=== PATIENT | male | born 1945 | race Caucasian/White ===

== ENCOUNTER 2017-01-26 15:20 | Inpatient (IN) ==
--- NOTE | 2017-01-26 15:35 | Emergency Department Note ---
START Narrative - START START: I examined this patient and my medical decision-making was reviewed with the PRIMER CHARGING TOOL SETTER/PA/Advanced Practice Nurse/Resident Physician. I agree with the documented findings, disposition and treatment plan as described except to the extent set forth below. will check ROBERTO. vasc surg consult
--- NOTE | 2017-01-26 15:42 | Emergency Department Note ---
Disposition Clinical Impression: Right leg pain Leg graft occlusion Qualifiers: Encounter type: initial encounter Qualified Code(s): T82.898A - Other specified complication of vascular prosthetic devices, implants and grafts, initial encounter Disposition: Admitted As Inpatient Condition: Good [facility]errals: [facility] [Non-Partnered Physician] - Forms: ED Satisfaction Letter General Adult HPI - General Chief complaint: ED Extremity Problem,Nontraumatic Stated complaint: right leg pain Time Seen by Provider: 01/26/17 15:24 Source: patient Mode of arrival: EMS Limitations: no limitations Nursing Notes Reviewed: Yes Vital Signs Reviewed: Yes - History of Present Illness HPI Narrative: 71-year-old male who reports last night sudden onset of pain from his mid calf all the way to his foot on the right. He also noted that his foot turned white and his toes were cold. He has a history of a femoropopliteal bypass on the right leg in the year 1999. In November he had a stent placed inside of the graft due to an aneurysm. This surgery was done down in [place] as he was standing down there for the winter. He states that the pain has been improving but his foot is still different color especially with any exertion and his toes are so cold and he has numbness in his foot. He denies him having any other symptoms such as chest pain, abdominal pain, palpitations. He does take an aspirin but is not on Plavix, Proventil, anticoagulants. Other medical problems include diabetes, hypertension, coronary arterial disease, peripheral vascular disease, CKD, hyperlipidemia. He is a current smoker Radiation: non-radiation Pain Severity: mild Pain Scale: 0 Consistency: constant Improves with: rest Worsens with: other (Ambulation) Associated symptoms: Reports: denies other symptoms Treatments Prior to Arrival: none - Related Data Allergies Allergy/AdvReac Type Severity Reaction Status Date / Time etodolac AdvReac See Verified 06/24/15 13:05 Comments IV DYE Allergy Rash Uncoded 06/24/15 13:05 All systems ED: reviewed and negative except as stated. Constitutional: Denies: fever Eyes: Denies: vision change ENT ED: Denies: throat pain Cardiovascular: Denies: chest pain Respiratory: Denies: cough Gastrointestinal: Denies: abdominal pain, nausea, vomiting Genitourinary: Denies: dysuria Musculoskeletal: Denies: back pain Integumentary: Denies: rash Neurological: Denies: headache Endocrine: Denies: fatigue Past Medical History - Past Medical History Medical history: Reports: diabetes, hyperlipidemia, hypertension, myocardial infarction, peripheral artery disease, renal disease - Social History Smoking Status: Former smoker Smokeless Tobacco Status: No Alcohol use: Reports: none Drug use: Reports: none Physical Exam - General Limitations: no limitations General appearance: alert, in no apparent distress - Head Head exam: atraumatic - Eye Eye exam: Present: normal appearance, PERRL - ENT ENT exam: normal exam, normal oropharynx - Neck Neck exam: Present: normal inspection - Chest Chest inspection: Present: normal inspection - Respiratory Respiratory exam: Present: normal lung sounds bilaterally. Absent: respiratory distress - Cardiovascular Cardiovascular exam: Present: regular rate, normal rhythm - Abdominal Exam Abdominal exam: Present: soft, Non-Tender - Extremities Exam Extremities exam: Present: other (Right lower extremity is cool to the touch compared to the left. Pulses are not palpable but they are difficult to palpate in either extremity likely due to his severe peripheral vascular disease. The right lower extremity is more pale compared to the left. He does have decreased sensation on the right compared to the left) - Back Exam Back exam: Present: normal inspection - Neurological Exam Neurological exam: Present: alert, oriented X3 - Skin Skin exam: Present: warm, dry Course Course Narrative: Due to concern for a acute thrombotic event we will obtain an ROBERTO and also some basic labs and coags in case we need to anticoagulate. Once we have the results of the ROBERTO if needed we will consult vascular surgery. There is no signs of cellulitis present in the lower extremities. - Reevaluation(s) Reevaluation #1: ABIs concerning for arterial occlusion. ROBERTO of 0.[address] Ordonez evaluated the patient here in the ER and would like him admitted on a heparin drip. He plans for CT scan after renal optimization. Accepted by Dr. Petty Vital Signs Temperature 98.1 F 01/26/17 15:21 Pulse Rate 78 01/26/17 15:21 Respiratory Rate 18 01/26/17 15:21 Blood Pressure 123/75 01/26/17 15:21 O2 Sat by Pulse Oximetry 98 01/26/17 15:21 Temperature 98.1 F 01/26/17 15:21 Pulse Rate 74 01/26/17 18:40 Respiratory Rate 18 01/26/17 18:40 Blood Pressure 129/82 01/26/17 18:40 O2 Sat by Pulse Oximetry 98 01/26/17 18:40 Medical Decision Making - Lab Data Lab results reviewed: Yes I reviewed the patient's lab results. Result diagrams: 01/26/17 16:10 01/26/17 16:10 Lab Results 01/26/17 01/26/17 01/26/17 Range/Units 16:10 16:10 16:10 WBC 6.8 (4.3-11.1) K/mcL RBC 3.73 L (4.19-5.50) M/mcL Hgb 10.5 L (12.9-16.9) g/dL Hct 32.2 L (37.5-50.1) % MCV 86.3 (83.0-100.0) fL MCH 28.2 (28.0-33.3) pg MCHC 32.6 (31.6-35.5) g/dL RDW 14.6 H (11.5-14.5) % Plt Count 138 L (140-400) K/mcL MPV 11.3 (9.4-12.4) fL Immature Gran % 1.0 (0-4) % Seg Neutrophils % 77.4 % Lymphocytes % 13.0 % Monocytes % 6.7 % Eosinophils % 1.5 % Basophils % 0.4 % Neutrophils # 5.3 (1.6-8.9) K/mcL Lymphocytes # 0.9 (0.6-4.6) K/mcL Monocytes # 0.5 (0.0-1.3) K/mcL Eosinophils # 0.1 (0.0-0.6) K/mcL Basophils # 0.0 (0.0-0.2) K/mcL PT 11.2 (9.4-12.1) Seconds INR 1.0 APTT 29.1 (26.0-36.0) Seconds Sodium 137 (136-145) mEq/L Potassium 4.0 (3.5-4.5) mEq/L Chloride 105 (98-109) mEq/L Carbon Dioxide 21 (19-29) mEq/L BUN 37 H (8-26) mg/dL Creatinine 1.94 H (0.72-1.25) mg/dL Est GFR ( Amer) 42 L (> 60) Est GFR (Non-Af Amer) 34 L (> 60) BUN/Creatinine Ratio 19 (6-26) Glucose 175 H (70-99) mg/dL Calculated Osmolality 297 (280-300) Calcium 8.6 (8.6-10.8) mg/dL Creatine Kinase 40 (30-200) Units/L - Radiology Data Radiology results reviewed: Yes I reviewed the patient's radiology results.
[2017-01-26 16:17] LABS: Basophils % 0.4 %; Eosinophils # 0.1 K/mcL (0.0-0.6); Eosinophils % 1.5 %; Hematocrit 32.2 % (37.5-50.1); Hemoglobin 10.5 g/dL (12.9-16.9); Lymphocytes # 0.9 K/mcL (0.6-4.6); Mean Corpuscular HGB Conc 32.6 g/dL (31.6-35.5); Mean Corpuscular Hemoglobin 28.2 pg (28.0-33.3); Mean Corpuscular Volume 86.3 fL (83.0-100.0); Mean Platelet Volume 11.3 fL (9.4-12.4); Monocytes # 0.5 K/mcL (0.0-1.3); Monocytes % 6.7 %; Neutrophils # 5.3 K/mcL (1.6-8.9); Platelet Count 138 K/mcL (140-400); Red Blood Count 3.73 M/mcL (4.19-5.50); Red Cell Distribution Width 14.6 % (11.5-14.5); Segmented Neutrophils % 77.4 %
[2017-01-26 16:22] LABS: Prothrombin Time 11.2 Seconds (9.4-12.1)
[2017-01-26 16:25] LABS: Activated Partial Thrombo Time 29.1 Seconds (26.0-36.0)
[2017-01-26 16:29] LABS: Calcium 8.6 mg/dL (8.6-10.8)
--- NOTE | 2017-01-26 17:28 | Arterial Study Report ---
LE Arterial Physiologic Study Patient Name:Elver Acevedo Order Number:[id number] Procedure Date:01/26/2017 Date:1945ge:71 yrs Gender:Male Lt BP:130 / mmHg Rt.BP:117 / mmHgHeart Rate: Location:[facility] ED Room #: Longitudinal Float Operator:Marianela Diamond RVT, JERRI Referring MD:Eduardo Marroquin DO reel film inspector:[facility] Tasha MD:Isauro Ordonez MD Primary Indications:right leg cold pain Risk Factors Yes/No Hypertension Yes Diabetes Yes Hypercholesterolemia Yes Smoking Current No Anticoagulants Yes Previous Vascular Surgery Yes Impressions: The right ROBERTO and waveforms are consistent with severe disease. Right ROBERTO 0.25. The left ROBERTO and waveforms are consistent with mild disease. Left ROBERTO 0.91 Recommendations: Risk factor reduction. Further evaluation is recommended. Test completed on 01/26/2017 at 5:07:47 pm. Critical findings reported to Eduardo Marroquin in person at 5:07:58 pm on 01/26/2017 by Marianela Diamond RVT, JERRI. Findings LE Arterial Physiologic Exam: Segmental Pressures: Right: The right posterior tibial pressure is 33 mmHg with an index of 0.25. The right dorsalis pedis pressure is 15 mmHg with an index of 0.12. Left: The left posterior tibial pressure is 118 mmHg with an index of 0.91. The left dorsalis pedis pressure is 101 mmHg with an index of 0.78. PVR: Right: The PVR waveforms are absent in the right ankle. Left: The PVR waveforms are mildly diminished in the left ankle. Segmental Pressures Side Location Pressure Index Result Right Posterior Tibial 33 0.25 Right Dorsalis Pedis 15 0.12 Left Posterior Tibial 118 0.91 Left Dorsalis Pedis 101 0.78 Ankle Brachial Index Right Systolic Diastolic ROBERTO Brachial 117 0.25 Dorsalis Pedis 15 0.12 Posterior Tibial 33 0.25 Left Systolic Diastolic ROBERTO Brachial 130 0.91 Dorsalis Pedis 101 0.78 Posterior Tibial 118 0.91 Updated by Isauro Ordonez MD on 01/26/2017 5:20:50 PM with Status of Final electronically signed on 01/26/2017 5:21:24 PM with status of Final
[2017-01-26] MEDS ORDERED: *HR* Heparin 5,000 UNIT/ML VIAL IVP PRN ×2 (18:15)
[2017-01-26] MEDS ORDERED: *HR* Heparin 5,000 UNIT/ML VIAL IVP ONE (18:15)
[2017-01-26] MEDS: Heparin 25,000 UNIT/500 ML D5W 25,000 UNIT/500 ML MLS IVC SCH (18:19)
--- NOTE | 2017-01-26 18:19 | Vascular/Endovasc Consult Note ---
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 The patient has an extensive history of vascular procedures including bilateral femoral to popliteal artery bypasses and an aortobifemoral bypass graft. The patient reports a right lower extremity stent that was placed in his graft in November 2016. He now presents with disablnig claudication and rest pain in his right lower extremity. His RABI is consistent with severe disease. His left ROBERTO is mildly abnormal. Occlusion of his right femoral to popliteal artery bypass is suspected. Given his prior surgical procedures, he will need a CT angiogram. Due to his chronic kidney disease, he will need to be hydrated and receive mucomyst. Due to his dye allergy, he will need to be prmedicated prior to his angiogram. His CTA will be performed tomorrow. Further options for revascularization will then be determined. He will be admitted and started on a heparin drip. (2) Diabetes mellitus with peripheral angiopathy without gangrene Current Visit: Yes Status: Chronic (3) Coronary artery disease involving [place] heart without angina pectoris Current Visit: Yes Status: Chronic Qualifiers: Coronary Disease-Associated Artery/Lesion type: [place] artery Qualified Code(s): I25.10 - Atherosclerotic heart disease of [place] coronary artery without angina pectoris (4) Chronic kidney disease, stage 3 Current Visit: Yes Status: Chronic (5) Allergy to intravenous contrast media Current Visit: Yes Status: Chronic (6) Essential hypertension Current Visit: Yes Status: Chronic (7) Mixed hyperlipidemia Current Visit: Yes Status: Chronic (8) Chronic anemia Current Visit: Yes Status: Chronic - History of Present Illness Consult date: 01/26/17 Requesting physician: Eduardo Marroquin Consult reason: Peripheral vascular disease Chief complaint: Right foot coolness, right calf claudication History of present illness: Mr. Acevedo is a 71 year old male with a history of peripheral vascular disease with disabling claudication. He reports bilateral femoral to popliteal artery bypasses around 1999. The patient reports that he later was found to have an aortic and bilateral iliac artery aneurysms. The patient reports he underwent an aortobifemoral bypass graft in 2013. He states that he was noted to have an aneurysm in his right lower extremity graft. He reports that he had a stent placed in his graft in November 2016 while in [place]. He states that he developed pain and coolness in his right foot yesteday. He also reports disabling claudication in the right calf. He presented to the ER due to persistent symptoms. He underwent vascular labs and they were abnormal sovascular surgery was consulted for further evaluation. He denies chest pain or shortness of breath. Past Med Surg Social Fam HX - Past Medical History Medical history: diabetes, hyperlipidemia, hypertension, myocardial infarction, peripheral artery disease, renal disease - Social History Smoking Status: Former smoker Smokeless Tobacco Status: No Alcohol use: none Drug use: none Medications and Allergies Atorvastatin [Lipitor] 40 mg PO HS 01/27/17 [History] Cholecalciferol (D-3) [Vitamin D] 2,000 unit PO DAILY 01/27/17 [History] Clotrimazole 1% CRM [Lotrimin 1%] 1 appl TP BID 01/27/17 [History] Insulin ASPART [Novolog Flexpen] 10 unit SQ TIDWM 01/27/17 [History] Insulin Glargine,Hum.rec.anlog [Lantus Solostar] 65 unit SQ DAILY 01/27/17 [ History] Isosorbide MONOnitrate (24 HR) [Imdur] 60 mg PO DAILY 01/27/17 [History] Lisinopril [Zestril] 40 mg PO DAILY 01/27/17 [History] Metoprolol XL (24 HR) Succ [Toprol XL] 75 mg PO DAILY 01/27/17 [History] RX: BuPROPion SR (12 HR) [Wellbutrin SR] 150 mg PO BID 01/27/17 [History] RX: glipiZIDE [Glipizide] 20 mg PO BID 01/27/17 [History] RX: hydroCHLOROthiazide [Hydrochlorothiazide] 25 mg PO DAILY 01/27/17 [History] Zolpidem [Ambien] 5 mg PO HS 01/27/17 [History] amLODIPine [Norvasc] 5 mg PO DAILY 01/27/17 [History] Allergies etodolac Adverse Reaction (Verified 06/24/15 13:05) See Comments IV DYE Allergy (Uncoded 06/24/15 13:05) Rash All Systems Review: A 10-system review of systems was performed and is negative for pertinent findings except as documented above in the HPI. - Constitutional Constitutional: no chills, no fever(s) - Cardiovascular Cardiovascular: claudication, no chest pain at rest, no chest pain with exertion , no dyspnea at rest, no dyspnea on exertion Exam Vital Signs, Last 4 Hours Temp Pulse Resp BP Pulse Ox 01/26/17 17:09 81 18 111/77 97 01/26/17 15:21 98.1 F 78 18 123/75 98 General: Present: Conversant, No Apparent Distress HEENT: Present: Atraumatic, Normocephaly, Trachea midline, Pupils equal Neck: Absent: JVD, Left Carotid bruit, Right Carotid bruit Cardiac: Present: Reg Rate and Rhythm, Normal S1 and S2, No Murmur Lungs: Present: Normal Breath Sounds, No Wheeze, Rales, Rhonchi Neuro: Present: Alert and responsive, No focal deficits noted, Cranial nerves grossly intact, Motor nerves grossly intact, Sensory nerves grossly intact Abdomen: Present: Soft, Non-tender. Absent: Masses Vascular: Present: Normal capillary refill, Pulse, absent (Right popliteal and tibial pulses), Pulse, normal (bilateral femoral, left popliteal and tibial pulses). Absent: Cyanosis, Edema Skin: Present: No rashes noted on visualized skin. Absent: Wound/ulcer(s) Musculoskeletal: Present: No Chest Wall Tenderness Consult Discharge Plan - Plan [facility]errals: [facility] [Primary Care Provider] -
[2017-01-26] MEDS ORDERED: D5% in Water 1,000 ML IVC PRN (18:53)
[2017-01-26] MEDS ORDERED: *HR* Dextrose 50 % in Water (Syg) 50 ML SYRINGE IVP PRN (18:53)
[2017-01-26] MEDS ORDERED: Dextrose Gel 15 GM PO PRN ×2 (18:53)
[2017-01-26] MEDS ORDERED: Acetaminophen 325 MG TABLET PO PRN (19:16)
[2017-01-26] MEDS ORDERED: Ondansetron 4 MG/2 ML VIAL IVP PRN (19:16)
[2017-01-26] MEDS ORDERED: Naloxone 0.4 MG/ML INJ IVP PRN (19:16)
--- NOTE | 2017-01-26 19:54 | Internal Med History&Physical ---
Date of Encounter: 01/26/17 Time of Encounter: 19:30 Assessment and Plan (1) Ischemia of right lower extremity Current visit: Yes Status: Acute Patient will be admitted to inpatient status. Expected to be in the hospital for at least 2 midnights. Expected discharge disposition is to home. High risk due to risk of worsening gangrene and the need for intravenous heparin drip which needs close monitoring. Vascular surgery on board. Appreciate input and recommendations. CT angiogram tomorrow of the right lower extremity. Continue aspirin and statin. (2) Diabetes mellitus Current visit: Yes Status: Chronic Uses 65 units of Lantus every night. Increase the dose to 70 units due to the patient being on steroids. Sliding scale insulin. Diabetic diet for tonight. Patient is chronic kidney disease stage III and used to see Dr. Griffith at the [place]. Renal function is at baseline according to review of outside records. Qualifiers: Diabetes mellitus type: type 2 Diabetes mellitus complication status: with kidney complications Diabetes mellitus complication detail: with chronic kidney disease Diabetes mellitus terminal operations manager insulin use: with terminal operations manager use Chronic kidney disease stage: stage 3 (moderate) Qualified Code(s): E11.22 - Type 2 diabetes mellitus with diabetic chronic kidney disease; N18.3 - Chronic kidney disease, stage 3 (moderate); Z79.4 - terminal operations manager (current) use of insulin (3) PAD (peripheral artery disease) Current visit: Yes Status: Chronic As above. Vascular surgery on board. Continue aspirin and statin. (4) Essential hypertension Current visit: Yes Status: Chronic Controlled blood pressure. Continue home medications. (5) Coronary artery disease involving [place] heart without angina pectoris Current visit: Yes Status: Chronic Stable. Patient states that he has never required cardiac stents or bypass surgery. He states that he has developed collaterals. Continue aspirin and statin. Qualifiers: Coronary Disease-Associated Artery/Lesion type: [place] artery Qualified Code(s): I25.10 - Atherosclerotic heart disease of [place] coronary artery without angina pectoris (6) Obesity (BMI 35.0-39.9 without comorbidity) Current visit: No Status: Chronic Internal Medicine - H&P: HPI Chief complaint: Right leg pain Admitted From: Emergency Dept Plans for Post Hospital Care: Home History of present illness: Mr. Acevedo is a 71 year old male with a history of peripheral artery disease status post right lower extremity stent placed in November in for [place] who presents to the emergency department due to 03/28 pain in his right calf that started yesterday evening at 5 PM without any radiation that is throbbing in nature. Aggravated with activity and relieved with rest. Not associated with any tingling or numbness or loss of sensation in his right leg and foot. Denies chest pain, palpitations, short of breath, fever or chills, nausea, vomiting or diarrhea, station. Denies any abdominal pain. In the emergency department, he was seen by vascular surgery and underwent ROBERTO. ROBERTO revealed severe disease in the right lower extremity. Vascular surgery felt that he has ischemia of the right lower extra day and that he would require CT angiogram. However, the patient is allergic to IV dye and hence, he is being given steroids by vascular surgery for premedication. He would receive CT abdomen tomorrow. In the interim, he has been recommended by us for surgery to get a heparin drip. Past Med Surg Social Fam HX - Past Medical History Attestation: Yes The following information was validated with the patient. Source: patient, old records reviewed Medical history: coronary artery disease, diabetes, hyperlipidemia, hypertension , myocardial infarction, peripheral artery disease, renal disease Psychiatric history: no psych history - Past Surgical History Surgical History: LE Bypass, LE stent(s), vascular surgery - Social History Smoking Status: Former smoker Smokeless Tobacco Status: No Alcohol use: none Drug use: none Current living situation: Home, With Family Activity Level: Independent ambulation Recent Out of Country Travel Within the Last 8 Weeks: No Exposure or Possible Exposure to Illness During Travel: No - Additional Family History Additional family history: Reviewed; not pertinent Internal Medicine - H&P: Meds Allergies etodolac Adverse Reaction (Verified 06/24/15 13:05) See Comments IV DYE Allergy (Uncoded 06/24/15 13:05) Rash All Systems PM: A 10-system review of systems was performed and is negative for pertinent findings except as documented above in the HPI. Review of systems: 10 systems have been reviewed and are negative except as mentioned in the history of present illness - Constitutional Vitals: Temp Pulse Resp BP Pulse Ox 98.1 F 74 18 129/82 98 01/26/17 15:21 01/26/17 18:40 01/26/17 18:40 01/26/17 18:40 01/26/17 18:40 Exam: Gen.: Lying in bed. No acute distress. Eyes: Pupils equal, round and reactive to light. Extraocular muscles intact. ENT: Moist mucous membranes. No oropharyngeal erythema or discharge. Chest: Clear to auscultation bilaterally. No adventitious sounds present. CVS: First and second heart sounds present. No murmurs, rubs or gallops. Abdomen: Soft, nontender, obese. Bowel sounds present. No hepatosplenomegaly. Skin: No decubitus ulcers appreciated. DECONTAMINATION WORKER: No focal neuro deficits present. Psychiatric: Alert, awake and oriented to time, place and person. Lymphatic system: No lymphadenopathy appreciated Musculoskeletal: Right lower extremity is cold to touch. Absent pulses in the right dorsalis pedis artery. Internal Med - H&P Results - Labs CBC & Chem 7: 01/26/17 16:10 01/26/17 16:10 Labs: Short CBC 01/26/17 Range/Units 16:10 WBC 6.8 (4.3-11.1) K/mcL Hgb 10.5 L (12.9-16.9) g/dL Hct 32.2 L (37.5-50.1) % Plt Count 138 L (140-400) K/mcL Neutrophils # 5.3 (1.6-8.9) K/mcL BMP 01/26/17 16:10 Sodium 137 Potassium 4.0 Chloride 105 Carbon Dioxide 21 BUN 37 H Creatinine 1.94 H Glucose 175 H Calcium 8.6 - Diagnostic Studies Other Images Additional comments: ROBERTO-0.25 in the right side consistent with severe disease. Mild disease in the left lower extremity.
[2017-01-26] MEDS: 0.9 % Sodium Chloride 1,000 ML IVC SCH (21:03)
[2017-01-26] MEDS: predniSONE 20 MG TABLET PO SCH (21:04)
[2017-01-26] MEDS: Insulin DETEMIR 100 UNIT/ML X5UNITS SQ SCH (21:05)
[2017-01-26] MEDS: Insulin LISPRO 300 UNITS/3 ML VIAL SQ SCH (22:04)
[2017-01-27] MEDS: *HR* Acetylcysteine 20% 600 MG/3 ML ORAL SYRINGE PO SCH ×3 (00:01→20:30)
[2017-01-27] MEDS: predniSONE 20 MG TABLET PO SCH ×2 (02:03→07:54)
[2017-01-27 05:40] LABS: Basophils % 0.1 %; Eosinophils % 0.1 %; Hematocrit 32.6 % (37.5-50.1); Hemoglobin 10.4 g/dL (12.9-16.9); Immature Granulocytes % 1.3 % (0-4); Lymphocytes # 0.3 K/mcL (0.6-4.6); Mean Corpuscular HGB Conc 31.9 g/dL (31.6-35.5); Mean Corpuscular Hemoglobin 27.6 pg (28.0-33.3); Mean Corpuscular Volume 86.5 fL (83.0-100.0); Monocytes # 0.1 K/mcL (0.0-1.3); Monocytes % 1.1 %; Platelet Count 122 K/mcL (140-400); Red Blood Count 3.77 M/mcL (4.19-5.50); Red Cell Distribution Width 14.6 % (11.5-14.5); Segmented Neutrophils % 93.4 %
[2017-01-27 05:55] LABS: Albumin 3.3 g/dL (3.5-5.0); Albumin/Globulin Ratio 0.9 (1.1-2.2); Bilirubin,Total 0.4 mg/dL (0.2-1.2); Calcium 8.7 mg/dL (8.6-10.8); Globulin 3.6 g/dL (2.4-3.5); Phosphorous 2.2 mg/dL (2.3-4.7); Potassium 4.3 mEq/L (3.5-4.5); Total Protein 6.9 g/dL (6.0-8.3)
[2017-01-27] MEDS: Insulin LISPRO 300 UNITS/3 ML VIAL SQ SCH ×4 (07:53→20:37)
[2017-01-27] MEDS: 0.9 % Sodium Chloride 1,000 ML IVC SCH ×2 (07:53→20:39)
[2017-01-27] MEDS: Heparin 25,000 UNIT/500 ML D5W 25,000 UNIT/500 ML MLS IVC SCH (07:54)
[2017-01-27] MEDS: Aspirin Enteric Coated 81 MG Tablet PO SCH (07:55)
--- NOTE | 2017-01-27 11:27 | Internal Med Progress Note ---
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 currently on heparin drip and medical therapy for PVD. patient complains of intermittent claudication. add statins. (2) Diabetes mellitus with peripheral angiopathy without gangrene Current Visit: Yes Status: Chronic Assessment and plan: continue with insulin therapy. diabetic diet. monitor fingerstick. if procedures planned and needs to be npo, give half dose of long acting insulin tonight. 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 Qualifiers: Presence of rupture: without rupture Qualified Code(s): I71.4 - Abdominal aortic aneurysm, without rupture (6) Chronic kidney disease, stage 3 Current Visit: Yes Status: Chronic Assessment and plan: avoid nephrotoxic agents. monitor renal function tests. - Subjective Interval history: 1st encounter with the patient. Afebrile, no chest pain, resting comfortable, his significant other was at bedside. - Constitutional Vitals: Temp Pulse Resp BP Pulse Ox 97.8 F 84 18 124/82 99 01/27/17 07:26 01/27/17 08:08 01/27/17 07:26 01/27/17 07:26 01/27/17 07:26 General appearance: Present: cooperative, A&O X 3, pleasant, obese - Head Head exam: Present: atraumatic, normocephalic - Eye Eye exam: Present: PERRL, conjuntiva pink, sclera anicteric Pupils: Present: PERRL - Neck Neck exam general surgery: Present: supple, trachea midline. Absent: lymphadenopathy - Respiratory Respiratory exam: Present: CTAB. Absent: accessory muscle use, rales, rhonchi, wheezes - Cardiovascular Cardiovascular exam: Present: RRR, +S1, +S2. Absent: diastolic murmur, gallop, rubs, systolic murmur - GI/Abdominal GI/Abdominal exam: Present: normal bowel sounds, soft, no peritoneal signs. Absent: distended, tenderness - Extremities Exam Extremities exam: Present: radial pulses palpable and symetrical. Absent: calf tenderness, cyanotic, pedal edema Additional comments: absent pulses in the right lower extremity, decreased temperature in the distal right lower extremity, no cyanosis, no edema, no erythema, femoral pulses present bilaterally. - Neurological Exam Neurological exam: Present: CN II-XII intact, oriented X3, no focal deficits. Absent: pronater drift, facial droop, speech deficit - Skin Skin exam: Present: dry, intact Internal Medicine: Result - Labs CBC & Chem 7: 01/27/17 05:27 01/27/17 05:27 Labs: Short CBC 01/27/17 Range/Units 05:27 WBC 7.5 (4.3-11.1) K/mcL Hgb 10.4 L (12.9-16.9) g/dL Hct 32.6 L (37.5-50.1) % Plt Count 122 L (140-400) K/mcL Neutrophils # 7.0 (1.6-8.9) K/mcL BMP 01/27/17 05:27 Sodium 134 L Potassium 4.3 Chloride 105 Carbon Dioxide 21 BUN 31 H Creatinine 1.68 H Glucose 244 H Calcium 8.7 Liver Function 01/27/17 Range/Units 05:27 Total Bilirubin 0.4 (0.2-1.2) mg/dL AST 12 (5-34) Units/L ALT 10 (0-55) Units/L Alkaline Phosphatase 65 (38-126) Units/L Albumin 3.3 L (3.5-5.0) g/dL - ABG Interpretation ABG results: PT/INR, D-dimer PT 11.2 Seconds (9.4-12.1) 01/26/17 16:10 - Impressions Impressions Aorta w/Runoff CTA 01/27/17 09:00 IMPRESSION: 1. Moderate atherosclerosis with one-vessel runoff to both ankles. No visualized opacification of the dorsalis pedis or plantar arteries, which are incompletely included. 2. Complete occlusions of the bilateral superficial femoral arteries and proximal popliteal arteries status post bilateral common femoral to popliteal bypass grafting. The right bypass graft is completely occluded collateral flow supplying the mid right popliteal artery. The left bypass graft is patent. 3. Changes of aortobi-iliac stent grafting with a stent graft extending from the left iliac limb into left internal iliac artery. No endoleak. 4. Multiple aneurysms involving the infrarenal abdominal aorta; the splenic, bilateral common iliac, right internal iliac, and bilateral popliteal arteries; and the right bypass graft. Recommend follow-up imaging in 1 year per the recommendations below given size of the infrarenal abdominal aortic aneurysm sac. 5. Indeterminate 1.5 cm x 0.9 cm right adrenal lesion, most likely an adenoma. Recommend attention on the above recommended follow-up imaging. RECOMMENDATIONS: Managing Abdominal Aortic Aneurysms 3.5-3.9 cm: 1 year follow up. Reference: Mena et al. The care of patients with an abdominal aortic aneurysm: The Society of Vascular Surgery practice guidelines. Journal of Vascular Surgery. Vol 50, Number 85. Amilcar et al. Managing Incidental Findings on Abdominal and Pelvic CT and MRI, Part 2: White Paper of the ACR Incidental Findings Committee II on Vascular Findings. J Am Prabha Radiol 2013;10:789-794 D/ / Varinder Jauregui MD / Varinder Jauregui MD Interpreting Provider: Varinder Jauregui MD Consult Discharge Plan - Plan Referrals: [facility] [Primary Care Provider] -
--- NOTE | 2017-01-27 13:42 | Vascular/Endovas Progress Note ---
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 His CTA reveals an occluded right femoral to popliteal artery bypass. He also has a right popliteal artery aneurysm below the distal anastamosis. He will require a right femoral to below knee popliteal arteery bypass. The risks, benefits and alternatives were discussed and all questions were answered. He will continue with his heparin drip today. He will also continue with intravenous fluid hydration and mucomyst today due to his chronic kidney disease. Will plan for surgery during the week. (2) Diabetes mellitus with peripheral angiopathy without gangrene Current Visit: Yes Status: Chronic Qualifiers: Diabetes mellitus type: type 2 Diabetes mellitus group home insulin use: unspecified intermission coordinator insulin use status Qualified Code(s): E11.51 - Type 2 diabetes mellitus with diabetic peripheral angiopathy without gangrene (3) Coronary artery disease involving sun'aq heart without angina pectoris Current Visit: Yes Status: Chronic Qualifiers: Coronary Disease-Associated Artery/Lesion type: sun'aq artery Qualified Code(s): I25.10 - Atherosclerotic heart disease of sun'aq coronary artery without angina pectoris (4) Chronic kidney disease, stage 3 Current Visit: Yes Status: Chronic (5) Allergy to intravenous contrast media Current Visit: Yes Status: Chronic (6) Essential hypertension Current Visit: Yes Status: Chronic (7) Mixed hyperlipidemia Current Visit: Yes Status: Chronic (8) Chronic anemia Current Visit: Yes Status: Chronic (9) Popliteal artery aneurysm, bilateral Current Visit: Yes Status: Acute - Subjective Interval history: The patient reports that his foot feels more comfortable since starting his heparin drip. He denies rest pain. He is alert. He denies chest pain or shortness of breath. Vital Signs, Last 4 Hours Temp Pulse Resp BP Pulse Ox 01/27/17 11:39 82 01/27/17 11:28 97.8 F 82 88 139/81 98 - Physical Examination General: Present: Conversant, No Apparent Distress HEENT: Present: Atraumatic, Pupils equal Neck: Absent: JVD Cardiac: Present: Reg Rate and Rhythm, No Murmur Lungs: Present: Normal Breath Sounds, No Wheeze, Rales, Rhonchi Neuro: Present: Alert and responsive, No focal deficits noted, Motor nerves grossly intact, Sensory nerves grossly intact Vascular: Present: Normal capillary refill, Pulse, absent (right popliteal, dorsalis pedis and posterior tibial signals present), Pulse, normal (right femoral and left lower extremity). Absent: Cyanosis, Edema Abdomen: Present: Soft, Non-tender Skin: Present: No rashes noted on visualized skin Results 01/27/17 05:27 01/27/17 05:27 Lab Results, Last 24 hours 01/26/17 01/27/17 01/27/17 23:32 05:27 05:27 WBC 7.5 Hgb 10.4 L Hct 32.6 L Plt Count 122 L APTT 76.4 H D Sodium 134 L Potassium 4.3 Chloride 105 Carbon Dioxide 21 BUN 31 H Creatinine 1.68 H Glucose 244 H Calcium 8.7 Total Bilirubin 0.4 AST 12 ALT 10 Alkaline Phosphatase 65 01/27/17 05:27 WBC Hgb Hct Plt Count APTT 84.6 H Sodium Potassium Chloride Carbon Dioxide BUN Creatinine Glucose Calcium Total Bilirubin AST ALT Alkaline Phosphatase - Imaging / Other Tests Echo: report reviewed CT/CTA: report reviewed, image reviewed Consult Discharge Plan - Plan [facility]errals: [facility] [Primary Care Provider] -
[2017-01-27] MEDS ORDERED: Insulin DETEMIR 100 UNIT/ML X5UNITS SQ ONE (21:00)
[2017-01-27] MEDS ORDERED: Sennosides 8.6 MG TABLET PO PRN (21:47)
[2017-01-28 05:55] LABS: Basophils % 0.1 %; Eosinophils % 0.2 %; Hematocrit 30.4 % (37.5-50.1); Hemoglobin 9.7 g/dL (12.9-16.9); Immature Granulocytes % 1.3 % (0-4); Lymphocytes # 0.8 K/mcL (0.6-4.6); Lymphocytes % 9.2 %; Mean Corpuscular HGB Conc 31.9 g/dL (31.6-35.5); Mean Corpuscular Hemoglobin 27.8 pg (28.0-33.3); Mean Corpuscular Volume 87.1 fL (83.0-100.0); Mean Platelet Volume 10.7 fL (9.4-12.4); Monocytes # 0.5 K/mcL (0.0-1.3); Platelet Count 113 K/mcL (140-400); Red Blood Count 3.49 M/mcL (4.19-5.50); Red Cell Distribution Width 14.6 % (11.5-14.5); Segmented Neutrophils % 83.2 %
[2017-01-28 06:05] LABS: INR 1.1; Prothrombin Time 12.1 Seconds (9.4-12.1)
[2017-01-28 06:08] LABS: Activated Partial Thrombo Time 80.9 Seconds (26.0-36.0); BUN/Creatinine Ratio 18 (6-26); Blood Urea Nitrogen 24 mg/dL (8-26); Calcium 8.2 mg/dL (8.6-10.8); Carbon Dioxide 23 mEq/L (19-29); Chloride 107 mEq/L (98-109); Glucose 194 mg/dL (70-99); Osmolality,Calculated 295 (280-300); Potassium 3.6 mEq/L (3.5-4.5); Sodium 138 mEq/L (136-145); eGFR For African Americans > 60 (> 60); eGFR For Non-African Americans 54 (> 60)
[2017-01-28] MEDS: 0.9 % Sodium Chloride 1,000 ML IVC SCH ×3 (08:10→17:06)
[2017-01-28] MEDS: Heparin 25,000 UNIT/500 ML D5W 25,000 UNIT/500 ML MLS IVC SCH ×2 (08:10→12:22)
[2017-01-28] MEDS: *HR* Acetylcysteine 20% 600 MG/3 ML ORAL SYRINGE PO SCH ×2 (08:17→19:40)
[2017-01-28] MEDS: Aspirin Enteric Coated 81 MG Tablet PO SCH (08:17)
[2017-01-28] MEDS: Insulin LISPRO 300 UNITS/3 ML VIAL SQ SCH ×4 (08:18→21:26)
--- NOTE | 2017-01-28 08:26 | Internal Med Progress Note ---
<Bere Vila - Last Filed: 01/28/17 13:18> Date of Encounter: 01/28/17 Time of Encounter: 08:26 - Assessment and plan (1) Ischemia of right lower extremity Current Visit: Yes Status: Acute Assessment and plan: Patient presented with signs and symptoms of limb ischemia. History of limb ischemia in the past with multiple femoral popliteal bypasses/vascular surgeries. History of peripheral vascular disease. Patient has been assessed for revascularization versus amputation and limb has been deemed viable for endovascular revascularization. CTA demonstrated complete occlusion of the dorsalis pedis/plantar arteries, superficial femoral arteries and proximal popliteal arteries status post femoral -popliteal bypass graft, with right bypass graft completely occluded with collateral flow to mid right popliteal. 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 Left bypass graft is patent. Vascular surgery is following. -Daily exams of extremity -Continue heparin drip -Continue medical therapy for peripheral vascular disease. Continue risk factor modifications: Blood pressure control, statin, antiplatelet therapy, cessation of smoking, low-fat cardiac diet, encourage exercising. -Patient is scheduled for right femoral to below-knee popliteal artery bypass on January 29 at 1330, with Dr. Ordonez. (2) PAD (peripheral artery disease) Current Visit: Yes Status: Chronic Assessment and plan: as above (3) Aortic aneurysm, abdominal Current Visit: Yes Status: Chronic Assessment and plan: Aorta w/Runoff CTA 01/27/17 09:00 4. Multiple aneurysms involving the infrarenal abdominal aorta; the splenic, bilateral common iliac, right internal iliac, and bilateral popliteal arteries; and the right bypass graft. Recommend follow-up imaging in 1 year per the recommendations below given size of the infrarenal abdominal aortic aneurysm sac. RECOMMENDATIONS: Managing Abdominal Aortic Aneurysms 3.5-3.9 cm: [address] noted, follow up as outpatient. Qualifiers: Presence of rupture: without rupture Qualified Code(s): I71.4 - Abdominal aortic aneurysm, without rupture (4) Diabetes mellitus with peripheral angiopathy without gangrene Current Visit: Yes Status: Chronic Assessment and plan: Hold oral hypoglycemics Monitor blood glucose as per protocol. Subcutaneous sliding scale insulin Basal insulin: 35 units Levemir tonight preoperative dosing. Tomorrow night will return to regular basal dosing of 70 units. Diabetic diet. Nothing by mouth after midnight. 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 avoid nephrotoxic agents. monitor renal function tests. BUN: 24, creatinine 1.32, GFR greater than 60 (6) Essential hypertension Current Visit: Yes Status: Chronic Assessment and plan: Currently controlled. Beta nando prior to surgery may be warranted. As per protocol. - Subjective Interval history: Patient was seen and examined. Patient reports no acute events overnight. Patient states that when he walks on his foot it turns white he has pain and then numbness. He has however been ambulating on it despite this. Patient is urinating without difficulty. He is tolerating a diabetic diet well and we will keep him nothing by mouth after midnight for his surgery scheduled with Dr. Ordonez tomorrow. Patient is on heparin drip per protocol. He has not had any falls, bleeding, increased bruising. Vitals stable. - Constitutional Vitals: Temp Pulse Resp BP Pulse Ox 97.7 F 73 17 134/86 96 01/28/17 08:08 01/28/17 08:08 01/28/17 08:08 01/28/17 08:08 01/28/17 08:08 General appearance: Present: cooperative, A&O X 3, pleasant, obese Exam: General: Cooperative, pleasant, no acute distress, alert and oriented 3, answers questions appropriately HEENT: Normocephalic, atraumatic, neck supple, trachea midline, Conjunctiva pink , sclera anicteric, EOMI, PERRL, oral mucosa moist, no orophargeal erythema or exudates Respiratory: No accessory muscle usage, clear to auscultation bilaterally, no wheezes/rhonchi/rales appreciated Cardiovascular: Regular rate and rhythm, S1 and S2 present, no murmurs/rubs/ gallops/clicks appreciated GI/abdominal: Nondistended, nontender, soft, normal bowel sounds, no peritoneal signs Extremities: no calf tenderness on palpation, however pt describes claudication with walking, right lower extremity demonstrates pallor and is cool to touch, no pedal edema appreciated, lower extremity pulses palpable on the left; right absent popliteal, dorsalis pedis, posterior tibial asymmetrical LE pulses. Neurological: Alert and oriented 3, no facial droop, no focal deficits Skin: Dry, intact, diffuse solar damage upper extremities Internal Medicine: Result - Labs CBC & Chem 7: 01/28/17 05:48 01/28/17 05:48 Labs: Short CBC 01/28/17 Range/Units 05:48 WBC 8.4 (4.3-11.1) K/mcL Hgb 9.7 L (12.9-16.9) g/dL Hct 30.4 L (37.5-50.1) % Plt Count 113 L (140-400) K/mcL Neutrophils # 7.0 (1.6-8.9) K/mcL BMP 01/28/17 05:48 Sodium 138 Potassium 3.6 Chloride 107 Carbon Dioxide 23 BUN 24 Creatinine 1.32 H Glucose 194 H Calcium 8.2 L - ABG Interpretation ABG results: PT/INR, D-dimer PT 12.1 Seconds (9.4-12.1) 01/28/17 05:48 - Impressions Impressions Aorta w/Runoff CTA 01/27/17 09:00 IMPRESSION: 1. Moderate atherosclerosis with one-vessel runoff to both ankles. No visualized opacification of the dorsalis pedis or plantar arteries, which are incompletely included. 2. Complete occlusions of the bilateral superficial femoral arteries and proximal popliteal arteries status post bilateral common femoral to popliteal bypass grafting. The right bypass graft is completely occluded collateral flow supplying the mid right popliteal artery. The left bypass graft is patent. 3. Changes of aortobi-iliac stent grafting with a stent graft extending from the left iliac limb into left internal iliac artery. No endoleak. 4. Multiple aneurysms involving the infrarenal abdominal aorta; the splenic, bilateral common iliac, right internal iliac, and bilateral popliteal arteries; and the right bypass graft. Recommend follow-up imaging in 1 year per the recommendations below given size of the infrarenal abdominal aortic aneurysm sac. 5. Indeterminate 1.5 cm x 0.9 cm right adrenal lesion, most likely an adenoma. Recommend attention on the above recommended follow-up imaging. RECOMMENDATIONS: Managing Abdominal Aortic Aneurysms 3.5-3.9 cm: 1 year follow up. Reference: Mena et al. The care of patients with an abdominal aortic aneurysm: The Society of Vascular Surgery practice guidelines. Journal of Vascular Surgery. Vol 50, Number 85. Amilcar et al. Managing Incidental Findings on Abdominal and Pelvic CT and MRI, Part 2: White Paper of the ACR Incidental Findings Committee II on Vascular Findings. 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 status Qualified Code(s): E11.51 - Type 2 diabetes mellitus with diabetic peripheral angiopathy without gangrene (3) Essential hypertension Current Visit: Yes Status: Chronic (4) PAD (peripheral artery disease) Current Visit: Yes Status: Chronic (5) Aortic aneurysm, abdominal Current Visit: Yes Status: Chronic Qualifiers: Presence of rupture: without rupture Qualified Code(s): I71.4 - Abdominal aortic aneurysm, without rupture (6) Chronic kidney disease, stage 3 Current Visit: Yes Status: Chronic - Constitutional Vitals: Temp Pulse Resp BP Pulse Ox 98.1 F 81 16 132/75 95 01/28/17 11:46 01/28/17 12:00 01/28/17 11:46 01/28/17 11:46 01/28/17 11:46 Internal Medicine: Result - Labs CBC & Chem 7: 01/28/17 05:48 01/28/17 05:48 Labs: Short CBC 01/28/17 Range/Units 05:48 WBC 8.4 (4.3-11.1) K/mcL Hgb 9.7 L (12.9-16.9) g/dL Hct 30.4 L (37.5-50.1) % Plt Count 113 L (140-400) K/mcL Neutrophils # 7.0 (1.6-8.9) K/mcL BMP 01/28/17 05:48 Sodium 138 Potassium 3.6 Chloride 107 Carbon Dioxide 23 BUN 24 Creatinine 1.32 H Glucose 194 H Calcium 8.2 L - ABG Interpretation ABG results: PT/INR, D-dimer PT 12.1 Seconds (9.4-12.1) 01/28/17 05:48 - Attending Attestation I examined this patient and my medical decision-making was reviewed with the FLORICULTURE TEACHER/PA/Advanced Practice Nurse/Resident Physician. I agree with the documented findings, disposition and treatment plan as described except to the extent set forth below. Bypass tomorrow. Continue current management. Agree with Dr. Vila.
--- NOTE | 2017-01-28 20:29 | Anesthesia Evaluation PreOp ---
Date of Encounter: 01/28/17 Time of Encounter: 20:25 - Past History Planned Operation: Fem Fem Bypass Graft Rt Cardiac History: [place] (CAD treated with statin and ASA), HTN, Hyperlipidemia, Other (AAA noted per CT Scan 3-3.5 cm stable Anemia, Peripheral Arterial Disease ) Pulmonary History: Former smoker [facility] History: Denies Any Significant HX Other Medical History: Renal (CKD), Diabetes Type II, Other (Obesity) Alcohol Use: none Drug use: none Medications and Allergies Atorvastatin [Lipitor] 40 mg PO HS 01/27/17 [History] BuPROPion SR (12 HR) [Wellbutrin SR] 150 mg PO BID 01/27/17 [History] Cholecalciferol (D-3) [Vitamin D] 2,000 unit PO DAILY 01/27/17 [History] Clotrimazole 1% CRM [Lotrimin 1%] 1 appl TP BID 01/27/17 [History] Insulin ASPART [Novolog Flexpen] 10 unit SQ TIDWM 01/27/17 [History] Insulin Glargine,Hum.rec.anlog [Lantus Solostar] 65 unit SQ DAILY 01/27/17 [ History] Isosorbide MONOnitrate (24 HR) [Imdur] 60 mg PO DAILY 01/27/17 [History] Lisinopril [Zestril] 40 mg PO DAILY 01/27/17 [History] Metoprolol XL (24 HR) Succ [Toprol XL] 75 mg PO DAILY 01/27/17 [History] Zolpidem [Ambien] 5 mg PO HS 01/27/17 [History] amLODIPine [Norvasc] 5 mg PO DAILY 01/27/17 [History] glipiZIDE [Glipizide] 20 mg PO BID 01/27/17 [History] hydroCHLOROthiazide [Hydrochlorothiazide] 25 mg PO DAILY 01/27/17 [History] Allergies etodolac Adverse Reaction (Verified 06/24/15 13:05) See Comments IV DYE Allergy (Uncoded 06/24/15 13:05) Rash - Meds/Allergy Pre-op Review Medications Reviewed: Yes Allergies Reviewed: Yes Beta Blockers on Current Med List: No Anesthesia Results - Labs 01/28/17 05:48 01/28/17 05:48 - Imaging EKG: report reviewed (SR) Additional studies: ECHO LVEF 55%, hypokinesis basal inferior wall, no puln htn Anesthesia Exam O2 Sat O2 Sat by Pulse Oximetry 95 O2 Sat by Pulse Oximetry 95 O2 Sat by Pulse Oximetry 96 O2 Sat by Pulse Oximetry 95 O2 Sat by Pulse Oximetry 99 Vital Signs Temp Pulse Resp BP Pulse Ox 98.1 F 78 18 123/75 98 01/26/17 15:21 01/26/17 15:21 01/26/17 15:21 01/26/17 15:21 01/26/17 15:21 Height: 6'2 Weight: 273 lbs NPO (# of Hours): MN Pain Scale: 0 - HEENT Pupil (Motor): Pupils equal, EOMI Mallampati: III Denture Type: Upper: Complete Oral Opening: Less than or equal to 3 - [facility]TACT [facility]ESSION[facility] LOC: Oriented [facility] Motor: Normal RUE, Normal LUE, Normal RLE, Normal LLE, Normal Face [facility] Sensory: Normal: RUE, LUE, RLE, LLE, Face - Cardiac Rhythm: Regular Murmur: None JVD: No Carotid Bruit: No - Pulmonary Breath Sounds: bilateral Clear Respiratory Effort: Symmetrical Anesthesia Assess/Plan ASA Score: 3 (HTN CAD PAD CKD DM) Modified Tommy Scale for Level of Consciousness: Cooperative, oriented, and tranquil Anesthetic Plan: General Monitoring Plan: Standard Monitors, A-Line Recovery Plan: PACU (Discussed GA, possible Melony, agrees to proceed)
[2017-01-28] MEDS ORDERED: Insulin DETEMIR 100 UNIT/ML X5UNITS SQ SCH (21:00)
[2017-01-28] MEDS: Insulin DETEMIR 100 UNIT/ML X5UNITS SQ SCH (21:18)
--- NOTE | 2017-01-29 06:52 | Vascular/Endovas Progress Note ---
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 He has an occluded right femoral to popliteal artery bypass and a right popliteal artery aneurysm below the distal anastamosis. He has been scheduled for a right femoral to below knee popliteal artery bypass. The risks, benefits and alternatives were discussed and all questions were answered. He expressed understanding and wishes to proceed. Continue with his heparin drip. (2) Diabetes mellitus with peripheral angiopathy without gangrene Current Visit: Yes Status: Chronic (3) Coronary artery disease involving [place] dee-ni' heart without angina pectoris Current Visit: Yes Status: Chronic Qualifiers: Coronary Disease-Associated Artery/Lesion type: [place]low[place] dee-ni' artery Qualified Code(s): I25.10 - Atherosclerotic heart disease of [place] dee-ni' coronary artery without angina pectoris (4) Chronic kidney disease, stage 3 Current Visit: Yes Status: Chronic Renal function improved with hydration. No evidence of contrast induced nephropathy. (5) Allergy to intravenous contrast media Current Visit: Yes Status: Chronic (6) Essential hypertension Current Visit: Yes Status: Chronic (7) Mixed hyperlipidemia Current Visit: Yes Status: Chronic (8) Chronic anemia Current Visit: Yes Status: Chronic (9) Popliteal artery aneurysm, bilateral Current Visit: Yes Status: Chronic - Subjective Interval history: The patient remains comfortable. He denies any new foot pain or parasthesias. He denies chest pain or shortness of breath. Vital Signs, Last 4 Hours Temp Pulse Resp BP Pulse Ox 01/29/17 04:22 98.1 F 75 14 114/83 98 01/29/17 04:11 65 - Physical Examination General: Present: Conversant, No Apparent Distress HEENT: Present: Atraumatic Neck: Absent: JVD Cardiac: Present: Reg Rate and Rhythm, Normal S1 and S2 Lungs: Present: Normal Breath Sounds, No Wheeze, Rales, Rhonchi Neuro: Present: Alert and responsive, No focal deficits noted, Motor nerves grossly intact, Sensory nerves grossly intact Vascular: Present: Normal capillary refill, Pulse, diminished (right pedal signals are monophasic). Absent: Clubbing, Cyanosis, Edema Abdomen: Present: Soft, Non-tender Skin: Present: No rashes noted on visualized skin Results 01/28/17 05:48 01/28/17 05:48 Lab Results, Last 24 hours 01/29/17 06:16 APTT 85.0 H Consult Discharge Plan - Plan Referrals: [facility],PCP [Primary Care Provider] - 02/05/17 9:45 am
[2017-01-29] MEDS: Insulin LISPRO 300 UNITS/3 ML VIAL SQ SCH ×4 (09:32→20:58)
[2017-01-29] MEDS: Aspirin Enteric Coated 81 MG Tablet PO SCH (09:34)
[2017-01-29] MEDS: Heparin 25,000 UNIT/500 ML D5W 25,000 UNIT/500 ML MLS IVC SCH (09:34)
--- NOTE | 2017-01-29 09:50 | Internal Med Progress Note ---
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 for medical terminology insulin use: unspecified care home insulin use status Qualified Code(s): E11.51 - Type 2 diabetes mellitus with diabetic peripheral angiopathy without gangrene (2) Coronary artery disease involving [place] heart without angina pectoris Current Visit: Yes Status: Chronic Assessment and plan: Chronic, stable Qualifiers: Coronary Disease-Associated Artery/Lesion type: [place] artery Qualified Code(s): I25.10 - Atherosclerotic heart disease of [place] coronary artery without angina pectoris (3) Chronic kidney disease, stage 3 Current Visit: Yes Status: Chronic Assessment and plan: Cr stable at baseline Received contrast Continue to monitor (4) Essential hypertension Current Visit: Yes Status: Chronic Assessment and plan: Currently controlled. Beta nando prior to surgery may be warranted. As per protocol. (5) Mixed hyperlipidemia Current Visit: Yes Status: Chronic Assessment and plan: Continue home meds (6) Chronic anemia Current Visit: Yes Status: Chronic Assessment and plan: Hb stable at baseline (7) Ischemia of right lower extremity Current Visit: Yes Status: Acute Assessment and plan: Patient presented with signs and symptoms of limb ischemia. History of limb ischemia in the past with multiple femoral popliteal bypasses/vascular surgeries. History of peripheral vascular disease. Patient has been assessed for revascularization versus amputation and limb has been deemed viable for endovascular revascularization. CTA demonstrated complete occlusion of the dorsalis pedis/plantar arteries, superficial femoral arteries and proximal popliteal arteries status post femoral -popliteal bypass graft, with right bypass graft completely occluded with collateral flow to mid right popliteal. 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 Left bypass graft is patent. Continue heprain drip For surgery today (8) Aortic aneurysm, abdominal Current Visit: Yes Status: Chronic Assessment and plan: 3.5-3.9 cm: [address] noted, follow up as outpatient. Multiple aneurysms involving the infrarenal abdominal aorta; the splenic, bilateral common iliac, right internal iliac, and bilateral poplitealarteries; and the right bypass graft. Recommend follow-up imaging in 1 year per the recommendations below given size of the infrarenal abdominal aortic aneurysm sac. Qualifiers: Presence of rupture: without rupture Qualified Code(s): I71.4 - Abdominal aortic aneurysm, without rupture - Subjective Interval history: Initial encounter 71-year-old male with medical history of chronic kidney disease stage III, diabetes mellitus with peripheral angioplasty, peripheral arterial disease with multiple procedures, coronary artery disease, obesity, aortic aneurysm Patient is admitted and being managed for right lower limb ischemia secondary to severe peripheral arterial disease. Patient is seen this morning at bedside with no new complaints, he is awaiting surgery this afternoon. - Constitutional Vitals: Temp Pulse Resp BP Pulse Ox 98.1 F 75 14 114/83 98 01/29/17 04:22 01/29/17 04:22 01/29/17 04:22 01/29/17 04:22 01/29/17 04:22 General appearance: Present: cooperative, A&O X 3, pleasant, obese - Head Head exam: Present: atraumatic, normocephalic - Eye Eye exam: Present: PERRL, conjuntiva pink, sclera anicteric Pupils: Present: PERRL - Neck Neck exam general surgery: Present: supple, trachea midline. Absent: lymphadenopathy - Respiratory Respiratory exam: Present: CTAB. Absent: accessory muscle use, rales, rhonchi, wheezes - Cardiovascular Cardiovascular exam: Present: RRR, +S1, +S2. Absent: diastolic murmur, gallop, rubs, systolic murmur - GI/Abdominal GI/Abdominal exam: Present: normal bowel sounds, soft, no peritoneal signs. Absent: distended, tenderness - Extremities Exam Extremities exam: Present: warm, radial pulses palpable and symetrical. Absent : calf tenderness, cyanotic, pedal edema Additional comments: Right lower limb with no dorsalis pedis pulse, no popliteal artery pulses felt. However his right lower extremity is pink and well-perfused, no mottling and not cold. No ulcers noted. Scars from previous surgeries noted. - Neurological Exam Neurological exam: Present: alert, CN II-XII intact, oriented X3, no focal deficits. Absent: pronater drift, facial droop, speech deficit - Skin Skin exam: Present: dry, intact Internal Medicine: Result - Labs CBC & Chem 7: 01/28/17 05:48 01/28/17 05:48 - ABG Interpretation ABG results: PT/INR, D-dimer PT 12.1 Seconds (9.4-12.1) 01/28/17 05:48 Consult Discharge Plan - Plan Referrals: [facility] [Primary Care Provider] - 02/05/17 9:45 am
[2017-01-29] MEDS ORDERED: Ondansetron 4 MG/2 ML VIAL ONE (10:30)
[2017-01-29] MEDS ORDERED: Lidocaine -MPF 2% 2 ML VIAL ONE (10:30)
[2017-01-29] MEDS ORDERED: *HR* Propofol 200 MG/20 ML VIAL IVP ONE ×2 (10:30→13:17)
[2017-01-29] MEDS ORDERED: *HR* FentaNYL (PF) 100 MCG/2 ML VIAL ONE ×3 (10:30→13:56)
[2017-01-29] MEDS ORDERED: Lidocaine -MPF 4% 5 ML AMPUL ONE (10:30)
[2017-01-29] MEDS ORDERED: Dexamethasone 4 MG/ML VIAL ONE (10:30)
[2017-01-29] MEDS ORDERED: Heparin 1,000 UNITS/500 mL NS 0 ML ONE (11:06)
[2017-01-29] MEDS: *HR* Acetylcysteine 20% 600 MG/3 ML ORAL SYRINGE PO SCH ×2 (11:06→23:27)
[2017-01-29] MEDS ORDERED: *HR* Midazolam HCl 2 MG/2 ML VIAL ONE (11:28)
--- NOTE | 2017-01-29 12:04 | Anesthesia Procedures ---
Date of Encounter: 01/29/17 Time of Encounter: 12:03 Procedures: Anesthesia - Arterial Line Consent obtained: verbal consent Time out performed: Yes Sedation: Versed (mg): 2 Local Anesthetic: Lidocaine 1% Amount of Anesthetic used (mls): 2 Size (Gauge): 20 Length (inches): 1 3/4 Technique Used: sterile prep, guide wire technique, direct puncture technique Post-Procedure: line taped into place, dry sterile dressing placed Patient tolerated procedure: well, no complications Complications: none Site: Radial R Vitals: pre indn, see or note
[2017-01-29] MEDS ORDERED: Heparin 1,000 UNITS/500 mL NS 500 ML ONE (12:18)
[2017-01-29] MEDS ORDERED: Vancomycin 1,000 MG VIAL ONE ×3 (12:18→15:21)
--- NOTE | 2017-01-29 12:18 | History & Physical Report ---
Date of Encounter: 01/29/17 Time of Encounter: 11:45 24 Hour HP Update - Instructions Instructions: If the History and Physical is less than 30 days old and was completed prior to A.M. admission and or procedure and has NOT been updated on calendar day of procedure please complete this update prior to performing procedure. - Update Patient reports changes in Medical Condition: No Changes in examination, assessment, or condition: No Changes in Medication: No Surgery Remains Indicated: Yes Consent for Planned Operative Procedure(s) Verified: Yes - Pre-Operative Checklist Preoperative Checklist Indicated: Yes Prophylactic Antibiotic Ordered: Yes (vancomycin due to mrsa risk) Home Medications Include Beta Yonatan: Yes (beta yonatan held due to bradycardia risk) Beta Yonatan Taken Today (Day of Surgery): No Beta Yonatan Taken Yesterday (Day Prior to Surgery): No Is VTE Prophylaxis Indicated?: NO
[2017-01-29] MEDS ORDERED: *HR* Promethazine 25 MG/ML VIAL IVP PRN (13:27)
[2017-01-29] MEDS ORDERED: Ondansetron 4 MG/2 ML VIAL IVP ONE (13:27)
[2017-01-29] MEDS ORDERED: *HR* HYDROmorphone 2 MG/ML SYRINGE ONE (13:56)
[2017-01-29] MEDS ORDERED: *HR* Heparin 5,000 UNIT/ML VIAL ONE ×2 (14:01→14:42)
--- NOTE | 2017-01-29 15:46 | Operative Note ---
Date of procedure: 01/29/17 Pre-op diagnosis: Peripheral vascular disease with rest pain, popliteal artery aneurysm Post-op diagnosis: same Procedure: 1. Resection of right common femoral artery anastamotic aneurysm. 2. Right common and deep femoral endarterectomy. 3. Right femoral to below knee popliteal artery bypass with 6mm Distaflo minicuff PTFE graft. Complications: None Anesthesia: GETA Surgeon: Isauro Ordonez Saxophone Player: Juan Diego Arriaga Estimated blood loss (cc): 200 Specimen: None Condition: stable Disposition: PACU Procedure in Detail: Indications: The patient is a 71 year old male with a history of an abdominal aortic aneurysm, peripheral vascular disease, a right popliteal artery aneurysm and a right common femoral artery anastamotic aneurysm. He previously underwent endograft repair of his aneurysm. The patient also has previously undergone a right femoral to above knee popliteal artery bypass around 2000. 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 He had a stent placed in his proximal graft in November 2016 at another facility. He presented to the ER with acute on chronic limb ischemia and was found to have an occluded right femoral to popliteal artery bypass. His CT scan also revealed his right common femoral artery aneurysm and a right popliteal aneurysm below his occluded bypass graft. Given the nature of his disease, his right femoral aneurysm, his right popiteal aneurysm and his peripheral vascular disease needed to be addressed simultaneously. Procedure: An oblique incision was made over the left groin sharply. This incision was made separately from his prior longitudinal scar in order to avoid crossin the inguinal fold. Hemostasis was obtained with electrocautery. Through a process of blunt, sharp, and electrocautery dissection, the right femoral vessels were dissected circumferentially and surrounded with vessel loops. His common femoral artery was pulsatile, aneurysmal and had a thin appearing wall. His prior graft was alsodissected circumferentially and surrounded with vessel loops. An incision was made on the right medial calf sharply. Hemostasis was obtained with electrocautery. Through a process of blunt, sharp, and electrocautery dissection, the right below-knee popliteal artery was dissected proximally and distally and surrounded with vessel loops. A graft was tunneled between the popliteal and femoral incisions. This required a counter incision at the distal right thigh due to the popliteal aneurysm and chronic scar from his prior graft. The patient received 5000 units of heparin intravenously. Additional heparin was given throughout the case to maintain adequate anticoagulation. The popliteal vessels were occluded and a longitudinal arteriotomy was made in the popliteal artery. The distal end of the graft was sutured in place with a running 6-0 Prolene, but not tied. Heparinized saline was infused into the lumen. Tension was applied to the femoral vessel loops. The graft was completely excised from the femoral artery and the proximal graft was resected. The aneurysmal portion of the artery was then resected. Extensive plaquae was noted to be present in the common femoral artery and deep femoral artery. Flow was limited by the plaque in the deep femoral artery. Using a dental freer, the plaque was excised and sent to pathology. Endpoints were inspected and no elevated flaps were noted. Release of the deep femoral vessel loop revealed vigorous retrograde flow. The proximal limb of the graft was then cut to fit the arterial defect. The graft was anastamosed with a running 6-0 Prolene. The vessels were flushed through the graft and heparin was infused into the lumen. The graft was clamped with an atraumatic clamp. Thrombin and gelfoam were used at the proximal anastamosis. The distal arterial anastomosis suture line was completed. Prior to completing the closure, the popliteal vessels were flushed and reoccluded. Heparinized saline was infused into the lumen. The anastamosis was tied and then flow was restored. Polyphasic signals were noted distal to the distal anastomosis as well as at the posterior tibial artery. Wounds were irrigated with antibiotic-containing saline. Thrombin and gelfoam were used to aid in hemostasis. Platelet rich and platelet poor plasma were infused into the wounds. Meticulous hemostasis was obtained throughout the wound with electrocautery. Wounds were reapproximated with layers of 2-0 and 3-0 Vicryl. Skin was reapproximated with 3-0 Monocryl. Sterile dressing was applied. The patient was extubated and taken to recovery room in stable condition.
[2017-01-29] MEDS ORDERED: *HR* HYDROmorphone (PF) 1 MG/ML SYRINGE ONE ×2 (16:13→16:24)
[2017-01-29] MEDS: *HR* HYDROmorphone (PF) 1 MG/ML SYRINGE IVP PRN ×4 (16:15→16:30)
--- NOTE | 2017-01-29 16:59 | Anesthesia Evaluation Post Op ---
Date of Encounter: 01/29/17 Time of Encounter: 16:59 - Vital Signs Vital Signs: Last Vital Signs Temp 97.6 F 01/29/17 16:40 Pulse 79 01/29/17 16:50 Resp 16 01/29/17 16:50 BP 119/93 01/29/17 16:50 Pulse Ox 96 01/29/17 16:50 - Lungs Lungs: Clear Ascult./Percussion - Airway Airway: Non-obstructed - Cardiovascular Regular Rate - Mental Status Mental Status: Alert & Oriented, Answers Appropriately - Pain Pain Scale: 4 - Nausea Vomiting Nausea Vomiting: Not Present - Hydration Hydration: Ice chips, Steinberg catheter - Discharge PostOp Status: Transfer Patient to floor
[2017-01-29] MEDS: 0.9 % Sodium Chloride 1,000 ML IVC SCH ×2 (17:18→20:58)
[2017-01-29] MEDS ORDERED: *HR* Morphine 2 MG/ML SYRINGE IVP PRN (18:33)
[2017-01-29] MEDS ORDERED: ceFAZolin 2,000 MG in D5% in Water 100 ML IVPB SCH (20:15)
[2017-01-29] MEDS: Insulin DETEMIR 100 UNIT/ML X5UNITS SQ SCH (20:57)
[2017-01-30] MEDS: ceFAZolin 2,000 MG in D5% in Water 100 ML IVPB SCH ×2 (05:19→13:13)
[2017-01-30 06:04] LABS: Basophils % 0.1 %; Hematocrit 26.2 % (37.5-50.1); Hemoglobin 8.4 g/dL (12.9-16.9); Immature Granulocytes % 1.2 % (0-4); Lymphocytes # 0.3 K/mcL (0.6-4.6); Lymphocytes % 3.4 %; Mean Corpuscular HGB Conc 32.1 g/dL (31.6-35.5); Mean Corpuscular Hemoglobin 28.1 pg (28.0-33.3); Mean Corpuscular Volume 87.6 fL (83.0-100.0); Mean Platelet Volume 10.9 fL (9.4-12.4); Monocytes # 0.5 K/mcL (0.0-1.3); Monocytes % 5.7 %; Neutrophils # 8.6 K/mcL (1.6-8.9); Platelet Count 124 K/mcL (140-400); Red Blood Count 2.99 M/mcL (4.19-5.50); Red Cell Distribution Width 14.8 % (11.5-14.5); Segmented Neutrophils % 89.6 %
[2017-01-30 06:22] LABS: Calcium 7.6 mg/dL (8.6-10.8); Potassium 4.4 mEq/L (3.5-4.5)
[2017-01-30] MEDS: *HR* Acetylcysteine 20% 600 MG/3 ML ORAL SYRINGE PO SCH (08:27)
[2017-01-30] MEDS: *HR* OxyCODONE/APAP 5/325 TABLET PO PRN ×2 (08:28→13:14)
[2017-01-30] MEDS: Insulin LISPRO 300 UNITS/3 ML VIAL SQ SCH ×2 (08:28→13:13)
[2017-01-30] MEDS: Aspirin Enteric Coated 81 MG Tablet PO SCH (08:28)
[2017-01-30] MEDS: 0.9 % Sodium Chloride 1,000 ML IVC SCH ×2 (09:18→14:02)
[2017-01-30 11:37] VITALS: BP 136/77
--- NOTE | 2017-01-30 11:59 | Discharge Summary ---
<Aquilino Funez T - Last Filed: 01/30/17 15:34> Date of Encounter: 01/30/17 Time of Encounter: 11:56 - Discharge Diagnosis (1) Diabetes mellitus with peripheral angiopathy without gangrene Priority: Secondary Status: Chronic Qualifiers: Diabetes mellitus type: type 2 Diabetes mellitus penitentiary insulin use: unspecified penitentiary insulin use status Qualified Code(s): E11.51 - Type 2 diabetes mellitus with diabetic peripheral angiopathy without gangrene (2) Coronary artery disease involving [place] heart without angina pectoris Priority: Secondary Status: Chronic Qualifiers: Coronary Disease-Associated Artery/Lesion type: [place] artery Qualified Code(s): I25.10 - Atherosclerotic heart disease of [place] coronary artery without angina pectoris (3) Chronic kidney disease, stage 3 Priority: Secondary Status: Chronic (4) Essential hypertension Priority: Secondary Status: Chronic (5) Mixed hyperlipidemia Priority: Secondary Status: Chronic (6) Chronic anemia Priority: Secondary Status: Chronic (7) Ischemia of right lower extremity Priority: Primary Status: Acute (8) Aortic aneurysm, abdominal Priority: Primary Status: Chronic Qualifiers: Presence of rupture: without rupture Qualified Code(s): I71.4 - Abdominal aortic aneurysm, without rupture - Discharge Medications Prescriptions: OxyCODONE/APAP 5/325 [Percocet 5/325 MG] 1 each PO Q4HR PRN #20 tablet PRN Reason: Moderate Pain Home Medications: Atorvastatin [Lipitor] 40 mg PO HS 01/27/17 [History] BuPROPion SR (12 HR) [Wellbutrin SR] 150 mg PO BID 01/27/17 [History] Cholecalciferol (D-3) [Vitamin D] 2,000 unit PO DAILY 01/27/17 [History] Clotrimazole 1% CRM [Lotrimin 1%] 1 appl TP BID 01/27/17 [History] Insulin ASPART [Novolog Flexpen] 10 unit SQ TIDWM 01/27/17 [History] Insulin Glargine,Hum.rec.anlog [Lantus Solostar] 65 unit SQ DAILY 01/27/17 [ History] Isosorbide MONOnitrate (24 HR) [Imdur] 60 mg PO DAILY 01/27/17 [History] Metoprolol XL (24 HR) Succ [Toprol Xl] 75 mg PO DAILY 01/27/17 [History] Zolpidem [Ambien] 5 mg PO HS 01/27/17 [History] amLODIPine [Norvasc] 5 mg PO DAILY 01/27/17 [History] glipiZIDE [Glipizide] 20 mg PO BID 01/27/17 [History] OxyCODONE/APAP 5/325 [Percocet 5/325 MG] 1 each PO Q4HR PRN #20 tablet 01/30/17 [Rx] Allergies/Adverse Reactions: Allergies etodolac Adverse Reaction (Verified 06/24/15 13:05) See Comments IV DYE Allergy (Uncoded 06/24/15 13:05) Rash Date of admission: 01/26/17 19:23 Primary care physician: PCP [place] Discharging clinician: Aquilino Funez Anticipated date of discharge: 01/30/17 - Patient Status Disposition: Home, Self-Care Condition: Good Functional capacity at discharge: independent ambulation Overall status at discharge: patient is progressing back to baseline - Discharge Instructions Instructions: Oxycodone/Acetaminophen (By mouth), Renal Failure Diet (GEN), Cigarette Smoking and Your Health (GEN), Femoropopliteal Bypass (DC) Follow Up With: Isauro Jain MD [Partnered Physician] - 03/18/17 11:00 am [place],PCP [Primary Care Provider] - 02/05/17 9:45 am Additional Instructions: - REMOVE DRESSINGS TOMORROW 01/31/17 - MAY REAPPLY CLEAN DRY DRESSING TO RIGHT GROIN DAILY FOR 1 WEEK. - 01/31/17 YOU MAY SHOWER. WASH WITH MILD SOAP AND WATER. PAT DRY. NO POOLS, HOT TUBS, TUB BATHS FOR AT LEAST 3 WEEKS. NO OINTMENTS, CREAMS, OR POWDERS TO INCISIONS. - CONTINUE TO USE THE INCENTIVE SPIROMETER 6 TIMES DAILY TO PREVENT POST OP PNEUMONIA. - PLEASE FOLLOW UP WITH YOUR PRIMARY CARE PROVIDER TO RECHECK LABS AND ADJUST BP MEDS IF NECESSARY. -CALL DR. JAIN AT [phone] WITH QUESTIONS OR CONCERNS. - Diet and Activity Activity: resume usual activities as tolerated Diet: low fat, low cholesterol, low salt diet Interval History: See below Hospital course: 71-year-old male with medical history of chronic kidney disease stage III, diabetes mellitus with peripheral angioplasty, peripheral arterial disease with multiple procedures, coronary artery disease, obesity, aortic aneurysm Patient is admitted and being managed for right lower limb ischemia secondary to severe peripheral arterial disease. He has a history of limb ischemia in the past with multiple femoral popliteal bypasses/vascular surgeries. History of peripheral vascular disease. Patient has been assessed for revascularization versus amputation and limb has been deemed viable for endovascular revascularization. CTA demonstrated complete occlusion of the dorsalis pedis/plantar arteries, superficial femoral arteries and proximal popliteal arteries status post femoral -popliteal bypass graft, with right bypass graft completely occluded with collateral flow to mid right popliteal. 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 Left bypass graft is patent. He was started on heparin drip and Vascular surgery was consulted. He received Acetylcysteine and IVF prior to conctrast administration for his aortogram. He had surgery on 01/29/17 -Right femoral endarterectomy and Right femoral to below knee popliteal artery bypass with 6mm Distaflo minicuff PTFE graft. Patient also has multiple aneurysms involving the infrarenal abdominal aorta; the splenic, bilateral common iliac, right internal iliac, and bilateral poplitealarteries; and the right bypass graft. Recommend follow-up imaging in 1 year per the recommendations below given size of the infrarenal abdominal aortic aneurysm sac. Patient is seen at bedside with spouse this morning, he is asymptomatic except for mild pain, he is ambulatory in the unit, his renal function is stable with his GFR and Cr better than baseline Patient is clinically stable to be discharged home Of note, his HCTZ and Lisinopril were held due to nephotoxicity in a patient with CKD receiving contrast, he is aware of this and is educated to follow up with PCP regarding restarting them prn His Vitals have been stable His other chronic medical conditions are stable Follow up with Dr. jain, and his PCP Plan of care discussed, verbalized understanding - Time Spent with Patient Total time spent providing and/or coordinating discharge services: Less than 30 minutes - Constitutional Vitals: Temp Pulse Resp BP Pulse Ox 97.8 F 80 18 136/77 100 01/30/17 11:36 01/30/17 11:37 01/30/17 11:37 01/30/17 11:37 01/30/17 11:36 General appearance: Present: cooperative, A&O X 3, pleasant, obese - Head Head exam: Present: atraumatic, normocephalic - Eye Eye exam: Present: PERRL, conjuntiva pink, sclera anicteric Pupils: Present: PERRL - Neck Neck exam general surgery: Present: supple, trachea midline. Absent: lymphadenopathy - Respiratory Respiratory exam: Present: CTAB. Absent: accessory muscle use, rales, rhonchi, wheezes - Cardiovascular Cardiovascular exam: Present: RRR, +S1, +S2, systolic murmur. Absent: diastolic murmur, gallop, rubs - GI/Abdominal GI/Abdominal exam: Present: normal bowel sounds, soft, no peritoneal signs. Absent: distended, tenderness - Extremities Exam Additional comments: RLE dressing clean and dry Dorsalis pedis pulse present - Neurological Exam Neurological exam: Present: alert, CN II-XII intact, oriented X3, no focal deficits. 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 He was feeling well on postoperative day #1. His wounds were healing and his symptoms resolved. He was discharged to home in stable condition. 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 insulin use: unspecified penitentiary insulin use status Qualified Code(s): E11.51 - Type 2 diabetes mellitus with diabetic peripheral angiopathy without gangrene (3) Coronary artery disease involving [place] heart without angina pectoris Priority: Secondary Status: Chronic Qualifiers: Coronary Disease-Associated Artery/Lesion type: [place] artery Qualified Code(s): I25.10 - Atherosclerotic heart disease of [place] coronary artery without angina pectoris (4) Chronic kidney disease, stage 3 Priority: Secondary Status: Chronic (5) Allergy to intravenous contrast media Priority: Secondary Status: Chronic (6) Essential hypertension Priority: Secondary Status: Chronic (7) Mixed hyperlipidemia Priority: Secondary Status: Chronic (8) Chronic anemia Priority: Secondary Status: Chronic (9) Popliteal artery aneurysm, bilateral Priority: Secondary Status: Chronic Date of admission: 01/26/17 19:23 Primary care physician: PCP [place] Hospital course: Mr. Acevedo is a 71 year old male - Time Spent with Patient Total time spent providing and/or coordinating discharge services: - Constitutional Vitals: Temp Pulse Resp BP Pulse Ox 97.8 F 80 18 136/77 100 01/30/17 11:36 01/30/17 11:37 01/30/17 11:37 01/30/17 11:37 01/30/17 11:36
--- NOTE | 2017-01-30 13:14 | Vascular/Endovas Progress Note ---
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 His incisions are healing and his foot is warm. He may be discharged today. (2) Diabetes mellitus with peripheral angiopathy without gangrene Current Visit: Yes Status: Chronic He was counseled regarding atherosclerotic risk factor reduction. (3) Coronary artery disease involving [place] heart without angina pectoris Current Visit: Yes Status: Chronic Qualifiers: Coronary Disease-Associated Artery/Lesion type: [place] artery Qualified Code(s): I25.10 - Atherosclerotic heart disease of [place] coronary artery without angina pectoris (4) Chronic kidney disease, stage 3 Current Visit: Yes Status: Chronic Creatinine improved with hydration. Patient is better than baseline admission. (5) Allergy to intravenous contrast media Current Visit: Yes Status: Chronic (6) Essential hypertension Current Visit: Yes Status: Chronic (7) Mixed hyperlipidemia Current Visit: Yes Status: Chronic (8) Chronic anemia Current Visit: Yes Status: Chronic The patient has chronic anemia with acute expected postoperative blood loss anemia. He is hemodynamically stable without evidence of ongoing blood loss. 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 He reports adequate pain control. He denies chest pain or shortness of breath. Vital Signs, Last 4 Hours Temp Pulse Resp BP Pulse Ox 01/30/17 11:37 80 18 136/77 01/30/17 11:36 97.8 F 81 18 136/77 100 - Physical Examination General: Present: No Apparent Distress HEENT: Present: Atraumatic Cardiac: Present: Reg Rate and Rhythm Lungs: Present: Normal Breath Sounds Neuro: Present: Alert and responsive, No focal deficits noted, Motor nerves grossly intact, Sensory nerves grossly intact Vascular: Present: Normal capillary refill, Pulse, normal, Surgical incisions ( incisions clean and dry without hematoma), Other (compartments are soft). Absent: Cyanosis, Edema Abdomen: Present: Soft Results 01/30/17 05:41 01/30/17 05:41 Lab Results, Last 24 hours 01/30/17 01/30/17 05:41 05:41 WBC 9.6 Hgb 8.4 L Hct 26.2 L Plt Count 124 L Sodium 133 L Potassium 4.4 Chloride 106 Carbon Dioxide 20 BUN 22 Creatinine 1.42 H Glucose 281 H Calcium 7.6 L Consult Discharge Plan - Plan Instructions: Oxycodone/Acetaminophen (By mouth), Renal Failure Diet (GEN), Cigarette Smoking and Your Health (GEN), Femoropopliteal Bypass (DC) Additional Instructions: - REMOVE DRESSINGS TOMORROW 01/31/17 - MAY REAPPLY CLEAN DRY DRESSING TO RIGHT GROIN DAILY FOR 1 WEEK. - 01/31/17 YOU MAY SHOWER. WASH WITH MILD SOAP AND WATER. PAT DRY. NO POOLS, HOT TUBS, TUB BATHS FOR AT LEAST 3 WEEKS. NO OINTMENTS, CREAMS, OR POWDERS TO INCISIONS. - CONTINUE TO USE THE INCENTIVE SPIROMETER 6 TIMES DAILY TO PREVENT POST OP PNEUMONIA. - PLEASE FOLLOW UP WITH YOUR PRIMARY CARE PROVIDER TO RECHECK LABS AND ADJUST BP MEDS IF NECESSARY. -CALL DR. JAIN AT [phone] WITH QUESTIONS OR CONCERNS. Referrals: Isauro Jain MD [Partnered Physician] - 03/18/17 11:00 am [place],PCP [Primary Care Provider] - 02/05/17 9:45 am Prescriptions: OxyCODONE/APAP 5/325 [Percocet 5/325 MG] 1 each PO Q4HR PRN #20 tablet PRN Reason: Moderate Pain
--- NOTE | 2017-01-30 21:52 | Operative Note ---
Date of procedure: 01/29/17 Pre-op diagnosis: Disabling right lower extremity claudication Post-op diagnosis: same Procedure: #1 right common femoral artery endarterectomy #2 redo right lower extremity bypass graft with right femoral to below the knee popliteal artery bypass with 6 mm PTFE Distaflo Complications: None Anesthesia: GETA Surgeon: Isauro Ordonez Co-Surgeon: Juan Diego Arriaga Estimated blood loss (cc): 200 Specimen: None Condition: stable Disposition: PACU Procedure in Detail: History This patient is a 71-year-old white male with a long history of lower extremity vascular disease. He has undergone previous bilateral femoral-popliteal bypass grafts. He is status post an aortobifemoral bypass graft. He is status post placement of a stent within the graft earlier this year. These were performed at outside institutions. The patient then presented recently with pain and coolness to the right leg via the emergency room. He was admitted and worked up including which included a CT angiogram. This demonstrated occlusion of the right lower extremity bypass graft. Patient had reconstitution of the popliteal artery below the knee. The patient now comes for revascularization of the right lower extremity. Procedure After informed consent was obtained the patient was taken the operating room. General endotracheal anesthesia was established. The right lower extremity was sterilely prepped and draped. A timeout protocol was observed. The right groin was a redo exploration. There was significant adhesions and scar present. Dissection was made to reveal the graft and the common femoral bifurcation. A second incision was then made in the [id number]-[id number] popliteal area. This was a very deep dissection with a vessel very lateral and difficult to expose. After this was accomplished a subsartorial tunnel was created. This did require a counterincision at the [id number]-[id number]-[id number] popliteal area in order to satisfactorily pass the tunnel through the area of scar. A 6 mm PTFE Distaflo graft was selected. This was passed through the tunnel and then the patient was heparinized. After appropriate 3 minute delay the vessels were clamped. Proximally an endarterectomy was performed of the common femoral artery due to the previous manipulation and skin graft. In addition the previously placed stent was removed. Distally the celad-tsh-kygl popliteal artery was opened with a longitudinal incision. This is a very thickened and diseased vessel. There is no active clot at this level however. The distal anastomosis was created first in end to side fashion using 6-0 Prolene suture. After this was appropriately and securely attached the proximal anastomosis was performed. The graft was then flushed and then pulsatile flow was restored into the right lower extremity. Hemostasis was achieved. Excellent Doppler signals were identified at the ankle. The wounds were then irrigated with antibiotic containing solution. The wounds were closed with absorbable suture. The patient was then transported in hemodynamically stable condition from the operating room to the recovery room.
== END 2017-01-30 14:00 | disposition home or self-care (01) | DRG 254 ==
LOC: EMEROO 15:20 → 2NNU 19:23 → SUATTDRO 19:23 → 2NNU 20:06
PROVIDERS: ADMIT Family Medicine; ATTEND Internal Medicine

== ENCOUNTER 2018-01-02 13:21 | Inpatient (IN) ==
[2018-01-02] MEDS ORDERED: Dextrose Gel 15 GM/37.5 ML TUBE PO PRN ×2 (15:42)
[2018-01-02] MEDS ORDERED: Isovue-370 500 ML INFUS..BTL IV ONE (15:42)
[2018-01-02] MEDS ORDERED: *HR* Heparin 5,000 UNIT/ML VIAL IVP ONE (15:42)
[2018-01-02] MEDS ORDERED: D5% in Water 1,000 ML IVC PRN (15:42)
[2018-01-02] MEDS ORDERED: *HR* Heparin 5,000 UNIT/ML VIAL IVP PRN ×2 (15:42)
[2018-01-02] MEDS ORDERED: *HR* Dextrose 50 % in Water (Syg) 50 ML SYRINGE IVP PRN (15:42)
[2018-01-02 16:37] LABS: Hematocrit 33.1 % (37.5-50.1); Hemoglobin 10.8 g/dL (12.9-16.9); Mean Corpuscular HGB Conc 32.6 g/dL (31.6-35.5); Mean Corpuscular Hemoglobin 28.6 pg (28.0-33.3); Mean Corpuscular Volume 87.8 fL (83.0-100.0); Mean Platelet Volume 11.1 fL (9.4-12.4); Platelet Count 134 K/mcL (140-400); Red Blood Count 3.77 M/mcL (4.19-5.50); Red Cell Distribution Width 14.6 % (11.5-14.5)
[2018-01-02 16:38] LABS: Basophils % 0.5 %; Eosinophils # 0.1 K/mcL (0.0-0.6); Eosinophils % 1.6 %; Hemoglobin 10.8 g/dL (12.9-16.9); Immature Granulocytes % 0.9 % (0-4); Lymphocytes % 15.7 %; Mean Corpuscular HGB Conc 32.7 g/dL (31.6-35.5); Mean Corpuscular Hemoglobin 28.9 pg (28.0-33.3); Mean Corpuscular Volume 88.2 fL (83.0-100.0); Mean Platelet Volume 11.3 fL (9.4-12.4); Monocytes # 0.5 K/mcL (0.0-1.3); Monocytes % 7.5 %; Neutrophils # 4.7 K/mcL (1.6-8.9); Platelet Count 132 K/mcL (140-400); Red Blood Count 3.74 M/mcL (4.19-5.50); Red Cell Distribution Width 14.6 % (11.5-14.5); Segmented Neutrophils % 73.8 %
[2018-01-02 16:43] LABS: INR 1.1; Prothrombin Time 11.4 Seconds (9.4-12.1)
[2018-01-02 16:46] LABS: Activated Partial Thrombo Time 27.1 Seconds (26.0-36.0)
[2018-01-02 16:59] LABS: Calcium 8.8 mg/dL (8.6-10.3); Potassium 4.1 mEq/L (3.5-5.1)
--- NOTE | 2018-01-02 17:40 | Vascular/Endovascular H&P ---
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 His undergone bilateral femoral to above knee popliteal artery bypasses in the past. He required a right femoral to below-knee popliteal bypass due to her prior graft occlusion. He now presents with an occluded right femoral to below-knee pop started bypass graft. His ankle-brachial indexes 0 on the right. However his motor and sensory function are intact in the right lower extremity. He has been admitted. He will be started on a heparin drip. He will undergo a CT scan. He will require graft thrombectomy with possible revision. The risks benefits and alternatives were discussed with him and all questions were answered. He is agreeable to the plan. (2) Diabetes mellitus with peripheral angiopathy without gangrene Current Visit: Yes Status: Chronic Insulin sliding scale and fingersticks. 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 (5) Allergy to intravenous contrast media Current Visit: Yes Status: Chronic The patient will be premedicated with steroids and Benadryl. (6) Essential hypertension Current Visit: Yes Status: Chronic (7) Mixed hyperlipidemia Current Visit: Yes Status: Chronic (8) Chronic disease anemia Current Visit: Yes Status: Chronic History of Present Illness Chief complaint: Right leg pain HPI: Mr. Acevedo is a 72 year old male with a history of hypertension, diabetes, tobacco abuse and aortic aneurysm and a right popliteal artery aneurysm. The patient also has a history of peripheral vascular disease. The patient has recently undergone endograft. Abdominal aortic aneurysm. He is also undergone bilateral femoral to popliteal bypasses. The patient presented to the emergency room in February 2017 with an acute occlusion of the right femoral to popliteal artery bypass graft. He required a new right femoral to below knee popliteal artery bypass graft. Patient reports he was doing well until 2017 when he was driving from [place]. He reports he developed acute pain in the right lower extremity. He states that he was driving for sustained periods of time without getting up to stand. He reports initially severe pain which has subsided to disabling claudication. Short distances in the right lower stomach. He underwent vascular studies and was found to have an occluded bypass graft as well as an ankle brachial index was severely abnormal. He has been admitted for further evaluation and intervention. He denies chest pain or shortness of breath. Past Med Surg Social Fam HX - Past Medical History Medical history: diabetes, hyperlipidemia, hypertension, myocardial infarction, peripheral artery disease, renal disease Psychiatric history: no psych history - Past Surgical History Surgical History: LE Bypass, LE stent(s), vascular surgery - Social History Smoking Status: Former smoker Smokeless Tobacco Status: No Alcohol use: none Drug use: none Medications and Allergies Atorvastatin [Lipitor] 20 mg PO HS 01/27/17 [History] BuPROPion SR (12 HR) [Wellbutrin SR] 150 mg PO BID 01/27/17 [History] Cholecalciferol (D-3) [Vitamin D] 2,000 unit PO DAILY 01/27/17 [History] Insulin ASPART [Novolog Flexpen] 10 unit SQ TIDWM 01/27/17 [History] Insulin Glargine,Hum.rec.anlog [Lantus Solostar] 65 unit SQ DAILY 01/27/17 [ History] Isosorbide MONOnitrate (24 HR) [Imdur] 60 mg PO DAILY 01/27/17 [History] Metoprolol XL (24 HR) Succ [Toprol Xl] 75 mg PO DAILY 01/27/17 [History] Zolpidem [Ambien] 5 mg PO HS 01/27/17 [History] amLODIPine [Norvasc] 5 mg PO BID 01/27/17 [History] glipiZIDE [Glipizide] 20 mg PO BID 01/27/17 [History] Lisinopril [Zestril] 5 mg PO DAILY 01/02/18 [History] 3 Allergy/AdvReac Type Severity Reaction Status Date / Time morphine Allergy Nausea Verified 06/11/17 09:46 etodolac AdvReac See Verified 06/24/15 13:05 Comments IV DYE Allergy Rash Uncoded 06/24/15 13:05 All Systems Review: The remainder of the systems were reviewed and are negative Exam Vital Signs, Last 4 Hours Temp Pulse Resp BP Pulse Ox 01/02/18 16:29 98.2 F 64 17 140/87 99 01/02/18 14:55 98.2 F 72 16 147/83 97 General: Present: Conversant, No Apparent Distress HEENT: Present: Atraumatic, Pupils equal Neck: Absent: JVD, Lymphadenopathy, Left Carotid bruit, Right Carotid bruit Cardiac: Present: Reg Rate and Rhythm, Normal S1 and S2 Lungs: Present: Normal Breath Sounds Neuro: Present: Alert and responsive, No focal deficits noted, Motor nerves grossly intact, Sensory nerves grossly intact Abdomen: Present: Soft, Non-tender. Absent: Masses Vascular: Present: Normal capillary refill, Pulse, absent (Right popliteal, dorsalis pedis and posterior tibial pulses absent), Pulse, normal (Left lower extremity). Absent: Cyanosis, Edema Skin: Present: No rashes noted on visualized skin Results 01/02/18 16:17 01/02/18 16:17 Lab Results, Last 24 hours 01/02/18 01/02/18 01/02/18 16:17 16:17 16:17 WBC 6.3 6.4 Hgb 10.8 L 10.8 L Hct 33.1 L 33.0 L Plt Count 134 L 132 L INR 1.1 APTT 27.1 Sodium Potassium Chloride Carbon Dioxide BUN Creatinine Glucose Calcium 01/02/18 16:17 WBC Hgb Hct Plt Count INR APTT Sodium 138 Potassium 4.1 Chloride 104 Carbon Dioxide 27 BUN 27 H Creatinine 1.46 H Glucose 159 H Calcium 8.8 - Imaging / Other Tests Non Invasive Vascular Testing: report reviewed, image reviewed - VTE Reasons for not Prescribing Prophylaxis: Not indicated-Anticoagulated or INR therapeutic
[2018-01-02] MEDS: Insulin LISPRO 300 UNITS/3 ML VIAL SQ SCH (17:51)
[2018-01-02] MEDS: MethylPREDNISolone 40 MG/ML VIAL IVP SCH (17:59)
[2018-01-02] MEDS: 0.9 % Sodium Chloride 1,000 ML IVC SCH (17:59)
[2018-01-02] MEDS: Heparin 25,000 UNIT/500 ML D5W 25,000 UNIT/500 ML BAG IVC SCH (18:00)
[2018-01-02] MEDS ORDERED: Insulin LISPRO 300 UNITS/3 ML VIAL SQ SCH (21:00)
[2018-01-02] MEDS: amLODIPine 5 MG TABLET PO SCH (21:28)
[2018-01-02] MEDS: BuPROPion SR (12 HR) 150 MG TABLET PO SCH (21:29)
[2018-01-02] MEDS: *HR* Acetylcysteine 20% 600 MG/3 ML ORAL SYRINGE PO SCH (21:30)
[2018-01-03] MEDS: MethylPREDNISolone 40 MG/ML VIAL IVP SCH ×2 (00:06→07:09)
[2018-01-03] MEDS: Insulin LISPRO 300 UNITS/3 ML VIAL SQ SCH ×2 (07:06→12:59)
[2018-01-03] MEDS ORDERED: Cholecalciferol (D-3) 1,000 UNIT TABLET PO SCH (09:00)
[2018-01-03] MEDS ORDERED: Metoprolol XL (24 HR) Succ 50 MG TAB.ER.24H PO SCH (09:00)
[2018-01-03] MEDS: amLODIPine 5 MG TABLET PO SCH (09:03)
[2018-01-03] MEDS: *HR* Acetylcysteine 20% 600 MG/3 ML ORAL SYRINGE PO SCH (09:03)
[2018-01-03] MEDS: BuPROPion SR (12 HR) 150 MG TABLET PO SCH (09:04)
[2018-01-03] MEDS: 0.9 % Sodium Chloride 1,000 ML IVC SCH (09:16)
[2018-01-03] MEDS: Heparin 25,000 UNIT/500 ML D5W 25,000 UNIT/500 ML BAG IVC SCH ×2 (09:16→23:15)
--- NOTE | 2018-01-03 14:39 | Anesthesia Evaluation PreOp ---
Date of Encounter: 01/03/18 Time of Encounter: 14:36 - Past History Planned Operation: R fem-pop bypass graft thrombectomy Cardiac History: VT, HTN, Hyperlipidemia, Other (PAD, s/p R fem-pop bypass) Pulmonary History: Former smoker, Smoking Cessation (7yrs ago) SCRIPT GIRL History: Denies Any Significant HX Other Medical History: Renal (CKD stage III) Anesthesia History: No Prior Anesthetic Complications, Past Anesthesia (aorto- bifem) Alcohol Use: none Drug use: none Medications and Allergies Atorvastatin [Lipitor] 20 mg PO HS 01/27/17 [History] BuPROPion SR (12 HR) [Wellbutrin SR] 150 mg PO BID 01/27/17 [History] Cholecalciferol (D-3) [Vitamin D] 2,000 unit PO DAILY 01/27/17 [History] Insulin ASPART [Novolog Flexpen] 10 unit SQ TIDWM 01/27/17 [History] Insulin Glargine,Hum.rec.anlog [Lantus Solostar] 65 unit SQ DAILY 01/27/17 [ History] Isosorbide MONOnitrate (24 HR) [Imdur] 60 mg PO DAILY 01/27/17 [History] Metoprolol XL (24 HR) Succ [Toprol Xl] 75 mg PO DAILY 01/27/17 [History] Zolpidem [Ambien] 5 mg PO HS 01/27/17 [History] amLODIPine [Norvasc] 5 mg PO BID 01/27/17 [History] glipiZIDE [Glipizide] 20 mg PO BID 01/27/17 [History] Lisinopril [Zestril] 5 mg PO DAILY 01/02/18 [History] 3 Allergy/AdvReac Type Severity Reaction Status Date / Time morphine Allergy Nausea Verified 06/11/17 09:46 etodolac AdvReac See Verified 06/24/15 13:05 Comments IV DYE Allergy Rash Uncoded 06/24/15 13:05 - Meds/Allergy Pre-op Review Medications Reviewed: Yes Allergies Reviewed: Yes Beta Blockers on Current Med List: Yes If Beta Blockers taken, Date/Time (Last Dose taken): 9:03am 01/03/18 Anesthesia Results - Labs 01/02/18 16:17 01/02/18 16:17 - Imaging EKG: pending Additional studies: stress test 06/2017 Impression: Pharmacologic stress ECG is non-diagnostic for ischemia due to submaximal HR. Gated EF = 55%. The left ventricle is dilated. LVEDV = 202 mL. Large sized, moderate intensity to absent perfusion, fixed defect involving the inferior and inferolateral segments suggestive of a prior infarct. Perfusion imaging was negative for ischemia. Anesthesia Exam Vital Signs/O2 Sat, Most Current Temp Pulse Resp BP Pulse Ox 98.7 F 71 18 141/94 97 01/03/18 10:32 01/03/18 10:32 01/03/18 10:32 01/03/18 10:32 01/03/18 10:32 Height: 72# Weight: 285lbs NPO (# of Hours): >8 - HEENT Pupil (Motor): Pupils equal, EOMI Mallampati: III Teeth: Edentulous Oral Opening: Greater than 3 - SCRIPT GIRL LOC: Oriented SCRIPT GIRL Motor: Normal RUE, Normal LUE, Normal RLE, Normal LLE, Normal Face SCRIPT GIRL Sensory: Normal: RUE, LUE, RLE, LLE, Face - Cardiac Rhythm: Regular - Pulmonary Breath Sounds: bilateral Clear Respiratory Effort: Symmetrical Anesthesia Assess/Plan ASA Score: 3 Modified Tommy Scale for Level of Consciousness: Cooperative, oriented, and tranquil Anesthetic Plan: General Monitoring Plan: Standard Monitors, A-Line Recovery Plan: PACU
[2018-01-03] MEDS ORDERED: Heparin 1,000 UNITS/500 mL 1,000 ML ONE (15:22)
[2018-01-03] MEDS ORDERED: *HR* FentaNYL (PF) 100 MCG/2 ML VIAL ONE ×2 (15:48→20:15)
[2018-01-03] MEDS ORDERED: *HR* Propofol 200 MG/20 ML VIAL IVP ONE (15:48)
[2018-01-03] MEDS ORDERED: Lidocaine -MPF 2% 2 ML VIAL ONE (15:49)
[2018-01-03] MEDS ORDERED: *HR* Succinylcholine 200 MG/10 ML VIAL IVP ONE (15:49)
[2018-01-03] MEDS ORDERED: *HR* Rocuronium Bromide 50 MG/5 ML VIAL ONE ×2 (16:16→17:16)
[2018-01-03] MEDS ORDERED: Vancomycin 1,000 MG VIAL ONE (16:21)
[2018-01-03] MEDS ORDERED: *HR* PHENYLEPHRINE 1,000 MCG/10 ML SYRINGE IVP ONE (16:24)
[2018-01-03] MEDS ORDERED: EPHEDrine 50 MG/ML VIAL ONE (16:24)
[2018-01-03] MEDS ORDERED: Lidocaine -MPF 4% 5 ML AMPUL ONE (16:32)
[2018-01-03] MEDS ORDERED: *HR* Phenylephrine 10 MG/ML VIAL ONE (17:36)
[2018-01-03] MEDS ORDERED: Dexamethasone 4 MG/ML VIAL ONE (17:41)
[2018-01-03] MEDS ORDERED: Ondansetron 4 MG/2 ML VIAL ONE (17:41)
[2018-01-03] MEDS ORDERED: *HR* Meperidine 25 MG/ML SYRINGE IVP PRN (18:28)
[2018-01-03] MEDS ORDERED: Ondansetron 4 MG/2 ML VIAL IVP ONE (18:28)
[2018-01-03] MEDS ORDERED: *HR* Labetalol 20 MG/4 ML SYRINGE IVP PRN (18:28)
[2018-01-03] MEDS ORDERED: *HR* Promethazine 25 MG/ML VIAL IVP PRN (18:28)
[2018-01-03] MEDS ORDERED: *HR* OxyCODONE Immed Rel 5 MG TABLET PO PRN (18:28)
[2018-01-03] MEDS ORDERED: *HR* Magnesium Sulfate 1 GM/2 ML VIAL ONE (19:28)
[2018-01-03] MEDS ORDERED: Heparin 25,000 UNIT/500 ML D5W 25,000 UNIT/500 ML BAG IVC ONE (21:32)
[2018-01-03] MEDS ORDERED: *HR* HYDROmorphone (PF) 1 MG/ML SYRINGE IVP PRN (22:18)
--- NOTE | 2018-01-03 22:43 | Operative Note ---
Date of procedure: 01/03/18 Pre-op diagnosis: Acute limb ischemia, peripheral vascular disease with rest pain Post-op diagnosis: same Procedure: 1. Right femoral to below knee popliteal artery bypass graft thrombectomy. 2. Right femoral to posterior tibial artery bypass with 6mm PTFE graft. Complications: None Anesthesia: GETA Surgeon: Isauro Ordonez Was there an assistant football coach present: No Estimated blood loss (cc): 250 Specimen: Right lower extremity thrombus Condition: stable Disposition: PACU Procedure in Detail: Indications: The patient is a 72-year-old male with a history of diabetes coronary artery disease, chronic kidney disease, hypertension and hyperlipidemia and anemia. The patient is a history of peripheral vascular disease and previously undergone multiple bypasses in the right lower extremity was admitted on 12/29/2017 with an acute graft occlusion resulting in acute right lower extremity ischemia. Revascularization has been recommended to reduce his risk of limb loss. Procedure: The patient was identified in the preoperative area. The risks, benefits and alternatives were discussed and all questions were answered. The patient was taken to the operating room and placed in the supine position on the operative table. After induction of general endotracheal anesthesia he was cleaned and draped in normal sterile fashion. An incision was made along the right medial calf longitudinally to his previous scar. The process of blunt, sharp and electrodissection dissection was performed down to the level of the bypass dense scar was noted to be present. The graft was dissected circumferentially. The popliteal artery was densely encased in scar was not initially dissected circumferentially. The artery was dissected along its anterior surface. The patient received 5000 unit of heparin intravenously. After waiting adequate time for the heparin to circulate, a longitudinal graftotomy was made in the distal end of the graft. Significant thrombus was noted within the graft lumen. The thrombus was removed under direct vision. A 4-Polish Reny catheter would not pass distally. A 3-Polish Reny catheter would also not passed distally. Inspection of the distal popliteal artery revealed a blind occlusion of the vessel. The graftotomy was then extended through the anastomosis and through the popliteal artery. The below-knee popliteal artery remained occluded. The anterior tibial vein was ligated and divided. Dissection was then performed distally along the popliteal artery and tibial peroneal trunk. The vessel continued to feel firm therefore the dissection was continued onto the posterior tibial artery. The posterior tibial artery was soft. The posterior tibial artery was dissected proximally and distally and surrounded with vessel loops. The distal banda was transected from the femoral to popliteal artery bypass and oversewn with 3-0 Prolene. A 4-Polish and then 5-Polish Reny embolectomy catheter was then passed proximally through the graft after multiple passes pulsatile flow was noted. Additional passes were performed revealing no additional thrombus. Flushed with heparinized saline. The graft was then clamped. A 6 mm PTFE graft was then anastomosed to the previous graft in a running fashion with 6-0 Prolene. Upon completion of the anastomosis the original graft was opened and no flow was noted initially. A 5-Polish Reny catheter was then advanced once again and pulsatile flow was noted. The new graft was then clamped with an atraumatic vascular clamp. A longitudinal arteriotomy was then made in the posterior tibial artery. The graft was cut to fit the arteriotomy incision was the running 6-0 Prolene. Prior to completely anastomosis he vessel was flushed and then reoccluded heparin saline was infused into the lumen. The anastomosis was completed and flow was restored. A polyphasic signals distal to the distal anastomosis. Biphasic signal was also noted at the posterior tibial artery at the level of the ankle. Meticulous hemostasis was obtained further with electrocautery. Platelet rich and platelet poor plasma were infused into the wound. The wound was then reapproximated with a layer of 2-0 Vicryl followed by 2 layers with 3- 0 Vicryl. 3-0 Monocryl was used to reapproximate the skin. Sterile dressings applied. The patient was taken to recovery room in stable condition.
[2018-01-04] MEDS ORDERED: *HR* Labetalol 20 MG/4 ML SYRINGE IVP PRN (00:09)
[2018-01-04] MEDS ORDERED: Ondansetron 4 MG/2 ML VIAL IVP PRN (00:09)
[2018-01-04] MEDS ORDERED: Acetaminophen 325 MG TABLET PO PRN (00:09)
[2018-01-04] MEDS ORDERED: *HR* Dextrose 50 % in Water (Syg) 50 ML SYRINGE IVP PRN (00:09)
[2018-01-04] MEDS ORDERED: Naloxone 0.4 MG/ML INJ IVP PRN (00:09)
[2018-01-04] MEDS ORDERED: *HR* Heparin 5,000 UNIT/ML VIAL IVP PRN ×2 (00:09)
[2018-01-04] MEDS ORDERED: Dextrose Gel 15 GM/37.5 ML TUBE PO PRN ×2 (00:09)
[2018-01-04] MEDS ORDERED: D5% in Water 1,000 ML IVC PRN (00:09)
[2018-01-04] MEDS: *HR* Metoprolol 5 MG/5 ML VIAL IVP SCH ×2 (00:10→05:41)
--- NOTE | 2018-01-04 00:48 | Anesthesia Evaluation Post Op ---
Date of Encounter: 01/04/18 Time of Encounter: 23:05 - Vital Signs Vital Signs: Vital Signs/O2 Sat, Most Current Temp Pulse Resp BP Pulse Ox 97.7 F 64 20 138/75 93 01/03/18 23:03 01/03/18 23:03 01/03/18 23:03 01/03/18 23:03 01/03/18 23:03 Notes: Patient's vital signs have been reviewed. Patient is stable postoperatively and has adequately recovered from anesthesia. Patient is determined to have stable airway patency and respiratory function including respiratory rate and oxygen saturation. Patient has a stable heart rate, blood pressure and adequate hydration. Patients mental status is acceptable. Patients temperature is appropriate. Pain and nausea are adequately controlled. - Discharge PostOp Status: Transfer Patient to floor
[2018-01-04] MEDS: 0.9 % Sodium Chloride 1,000 ML IVC SCH ×2 (05:41→18:04)
[2018-01-04 06:40] LABS: Basophils % 0.1 %; Hematocrit 28.4 % (37.5-50.1); Hemoglobin 9.6 g/dL (12.9-16.9); Lymphocytes # 0.4 K/mcL (0.6-4.6); Lymphocytes % 3.3 %; Mean Corpuscular HGB Conc 33.8 g/dL (31.6-35.5); Mean Corpuscular Hemoglobin 29.9 pg (28.0-33.3); Mean Corpuscular Volume 88.5 fL (83.0-100.0); Mean Platelet Volume 11.2 fL (9.4-12.4); Monocytes # 0.8 K/mcL (0.0-1.3); Monocytes % 5.8 %; Platelet Count 138 K/mcL (140-400); Red Blood Count 3.21 M/mcL (4.19-5.50); Red Cell Distribution Width 14.9 % (11.5-14.5); Segmented Neutrophils % 89.8 %
[2018-01-04 06:41] LABS: Neutrophils # 11.9 K/mcL (1.6-8.9)
[2018-01-04 06:57] LABS: Calcium 8.3 mg/dL (8.6-10.3); Potassium 4.4 mEq/L (3.5-5.1)
[2018-01-04 07:16] LABS: Activated Partial Thrombo Time 130.6 Seconds (26.0-36.0)
[2018-01-04 07:42] LABS: Heparin anti-factor XA UFH 1.28 IU/mL (0.30-0.70)
[2018-01-04] MEDS: Metoprolol XL (24 HR) Succ 50 MG TAB.ER.24H PO SCH (07:56)
[2018-01-04] MEDS: amLODIPine 5 MG TABLET PO SCH ×2 (07:56→21:39)
[2018-01-04] MEDS: *HR* HYDROcodone/Acet 5/325 mg TABLET PO PRN ×2 (07:56→17:59)
[2018-01-04] MEDS: Cholecalciferol (D-3) 1,000 UNIT TABLET PO SCH (07:57)
[2018-01-04] MEDS: BuPROPion SR (12 HR) 150 MG TABLET PO SCH ×2 (07:57→21:39)
[2018-01-04] MEDS: Insulin LISPRO 300 UNITS/3 ML VIAL SQ SCH ×3 (08:29→16:56)
[2018-01-04] MEDS: *HR* OxyCODONE Immed Rel 5 MG TABLET PO PRN ×2 (11:21→21:39)
--- NOTE | 2018-01-04 12:51 | Vascular/Endovas Progress Note ---
Date of Encounter: 01/04/18 Time of Encounter: 12:48 - Assessment and plan (1) Ischemia of right lower extremity Current Visit: Yes Status: Acute Patient is status post thrombectomy with distal revision of right femoral- popliteal bypass graft. Bypass graft is patent. Will ambulate patient today. Continue IV anticoagulation overnight. If patient's table anticipate he will be discharged home tomorrow with long-term Xarleto therapy. This plan was reviewed with the patient and discussed. All questions were answered. (2) Diabetes mellitus with peripheral angiopathy without gangrene Current Visit: Yes Status: Chronic Patient has type 2 diabetes. 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 The patient has complaints only of incisional pain. He states his right foot is feeling better. The patient is on intravenous heparin drip. Vital Signs, Last 4 Hours Temp Pulse Resp BP Pulse Ox 01/04/18 12:16 66 20 96 01/04/18 12:05 68 01/04/18 11:39 97.7 F 77 19 128/75 100 01/04/18 10:41 66 20 138/76 99 - Physical Examination General: Present: Conversant, No Apparent Distress Cardiac: Present: Reg Rate and Rhythm Lungs: Present: Normal Breath Sounds Neuro: Present: Alert and responsive Vascular: Present: Color/Temperature (Right foot is cool), Surgical incisions ( Right Surgical dressing is dry and intact.), Other (Patient has Doppler signal over the posterior tibial area of the right ankle.) Skin: Present: No rashes noted on visualized skin - VTE Reasons for not Prescribing Prophylaxis: Not indicated-Anticoagulated or INR therapeutic Documentation of Mechanical Device: Intermittent pneumatic compression device Results 01/04/18 06:24 01/04/18 06:24 Lab Results, Last 24 hours 01/04/18 01/04/18 01/04/18 06:24 06:24 06:24 WBC 13.3 H D Hgb 9.6 L Hct 28.4 L Plt Count 138 L APTT 130.6 H* D Sodium 132 L Potassium 4.4 Chloride 101 Carbon Dioxide 24 BUN 31 H Creatinine 1.57 H Glucose 340 H Calcium 8.3 L Consult Discharge Plan - Plan Referrals: Isauro Ordonez MD [Partnered Physician] - 02/18/18 2:30 pm CAROLINE,TRINA [Non-Partnered Physician] - 01/14/18 8:15 am (Blue Team)
[2018-01-04] MEDS: Heparin 25,000 UNIT/500 ML D5W 25,000 UNIT/500 ML BAG IVC SCH (14:32)
[2018-01-04] MEDS ORDERED: Insulin LISPRO 300 UNITS/3 ML VIAL SQ SCH (21:00)
[2018-01-05] MEDS: *HR* HYDROcodone/Acet 5/325 mg TABLET PO PRN ×3 (03:49→15:37)
[2018-01-05] MEDS: Metoprolol XL (24 HR) Succ 50 MG TAB.ER.24H PO SCH (07:31)
[2018-01-05] MEDS: BuPROPion SR (12 HR) 150 MG TABLET PO SCH (07:31)
[2018-01-05] MEDS: amLODIPine 5 MG TABLET PO SCH (07:31)
[2018-01-05] MEDS: Cholecalciferol (D-3) 1,000 UNIT TABLET PO SCH (07:31)
[2018-01-05] MEDS: *HR* OxyCODONE Immed Rel 5 MG TABLET PO PRN ×2 (07:36→13:46)
[2018-01-05] MEDS: Insulin LISPRO 300 UNITS/3 ML VIAL SQ SCH ×2 (07:43→11:45)
[2018-01-05] MEDS: Heparin 25,000 UNIT/500 ML D5W 25,000 UNIT/500 ML BAG IVC SCH (07:44)
[2018-01-05] MEDS: 0.9 % Sodium Chloride 1,000 ML IVC SCH (08:03)
[2018-01-05 11:13] VITALS: BP 132/82
--- NOTE | 2018-01-05 14:57 | Discharge Summary ---
Orders not resulted at time of discharge: Pending orders 01/03/18 22:12 Surgical Pathology [PTH] Routine 01/06/18 04:00 PTT [Activated Partial Thrombo Time] [COAG] AM 0400 Date of Encounter: 01/05/18 Time of Encounter: 14:55 - Discharge Diagnosis (1) Ischemia of right lower extremity Priority: Primary Status: Acute Comments: Patient has long history of vascular disease including aneurysmal disease. The patient presented with thrombosis of his right femoral to [id number] popliteal artery bypass graft. Patient was taken to the operating room as an emergency by Dr. Ordonez. A prolonged and difficult operation was performed with thrombectomy of the graft and revision that required a jump graft to the posterior tibial artery of the right calf. The patient had uneventful postoperative course. Due to the amount of synthetic material in the leg and the distal extent of the synthetic bypass graft anticoagulation indefinitely was recommended to the patient. The patient was placed on IV heparin drip and will be discharged on Xarleto therapy. The rationale for the Xarleto therapy was reviewed with the patient prior to discharge. (2) Diabetes mellitus with peripheral angiopathy without gangrene Priority: Secondary Status: Chronic Comments: Patient has chronic diabetes associated with obesity and lipid disorder. Qualifiers: Diabetes mellitus type: type 2 Diabetes mellitus assisted insulin use: unspecified terminal makeup operator insulin use status Qualified Code(s): E11.51 - Type 2 diabetes mellitus with diabetic peripheral angiopathy without gangrene - Hospital Course Hospital course: Mr. Acevedo is a 72 year old male With a long history of vascular disease and aneurysmal disease. He had been a prolonged car trip from [place]. He had right lower extremity pain. Noninvasive testing showed a thrombosed graft. He was then taken to the operating room as an emergency Saturday evening for graft thrombectomy. This was performed and also required not only a thrombectomy of the femoral to below-the- knee bypass graft but also a jump graft to the posterior tibial artery. Synthetic graft was used for this. Postoperatively the patient had uneventful course. He was placed on IV heparin because the amount of synthetic graft present. Patient did had a Doppler signal at the posterior tibial artery at the ankle though the foot itself remained cool. The patient had no schema crest pain. The patient was felt fit for discharge on postoperative day #2. Patient will be discharged on Xarleto therapy. This will be used indefinitely because of the synthetic grafts. - Time Spent with Patient Total time spent providing and/or coordinating discharge services: - Discharge Medications Prescriptions: HYDROcodone/Acet 5/325 mg [Nageezi 5-325 mg] 1 tab PO Q6HR PRN 7 Days #30 tablet PRN Reason: Moderate Pain Rivaroxaban [Xarelto] 15 mg PO BID 21 Days #42 tablet Rivaroxaban [Xarelto] 20 mg PO QPM #30 tablet Home Medications: Atorvastatin [Lipitor] 20 mg PO HS 01/27/17 [History] BuPROPion SR (12 HR) [Wellbutrin SR] 150 mg PO BID 01/27/17 [History] Cholecalciferol (D-3) [Vitamin D] 2,000 unit PO DAILY 01/27/17 [History] Insulin ASPART [Novolog Flexpen] 10 unit SQ TIDWM 01/27/17 [History] Insulin Glargine,Hum.rec.anlog [Lantus Solostar] 65 unit SQ DAILY 01/27/17 [ History] Isosorbide MONOnitrate (24 HR) [Imdur] 60 mg PO DAILY 01/27/17 [History] Metoprolol XL (24 HR) Succ [Toprol Xl] 75 mg PO DAILY 01/27/17 [History] Zolpidem [Ambien] 5 mg PO HS 01/27/17 [History] amLODIPine [Norvasc] 5 mg PO BID 01/27/17 [History] glipiZIDE [Glipizide] 20 mg PO BID 01/27/17 [History] Lisinopril [Zestril] 5 mg PO DAILY 01/02/18 [History] HYDROcodone/Acet 5/325 mg [Nageezi 5-325 mg] 1 tab PO Q6HR PRN 7 Days #30 tablet 01/05/18 [Rx] Rivaroxaban [Xarelto] 15 mg PO BID 21 Days #42 tablet 01/05/18 [Rx] Rivaroxaban [Xarelto] 20 mg PO QPM #30 tablet 01/05/18 [Rx] Allergies/Adverse Reactions: 3 Allergy/AdvReac Type Severity Reaction Status Date / Time morphine Allergy Nausea Verified 06/11/17 09:46 etodolac AdvReac See Verified 06/24/15 13:05 Comments IV DYE Allergy Rash Uncoded 06/24/15 13:05 Date of admission: 01/02/18 14:14 Primary care physician: Valerie Simpson MD Consults: None Procedure(s) Performed: Thrombectomy of right femoral popliteal bypass graft and jump graft to right posterior tibial artery with 6 mm PTFE Discharging clinician: Juan Diego Arriaga Anticipated date of discharge: 01/05/18 Exam Vital Signs, Last 4 Hours Temp Pulse Resp BP Pulse Ox 01/05/18 11:41 67 01/05/18 11:10 97.8 F 68 20 132/82 98 General: Present: Conversant, Well developed, Well nourished, Other (Obese) HEENT: Present: Atraumatic Neuro: Present: Alert and responsive, No focal deficits noted Vascular: Present: Edema (Mild), Color/Temperature (Right foot is cool to touch but patient does have a Doppler signal at the posterior tibial artery.), Surgical incisions (Intact) Skin: Present: No rashes noted on visualized skin - Patient Status Disposition: Home, Self-Care Condition: Fair Functional capacity at discharge: independent ambulation Overall status at discharge: patient is progressing back to baseline - Discharge Instructions Follow Up With: Isauro Ordonez MD [Partnered Physician] - 02/18/18 2:30 pm [facility],PCP [Non-Partnered Physician] - 01/14/18 8:15 am (Blue Team) Additional Instructions: (Xarleto therapy. For the first 3 weeks take 15 mg twice a day. Then after that take 20 mg once a day. - Diet and Activity Activity: increase activity as tolerated Diet: diabetic diet - VTE Reasons for not Prescribing Prophylaxis: Not indicated-Anticoagulated or INR therapeutic Documentation of Mechanical Device: Intermittent pneumatic compression device
--- NOTE | 2018-01-06 06:34 | Electrocardiograph Report ---
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
== END 2018-01-05 15:40 | disposition home or self-care (01) | DRG 254 ==
LOC: 2NNU 14:14
PROVIDERS: ADMIT Surgery; ATTEND Surgery

== ENCOUNTER 2018-02-25 12:06 | Inpatient (IN) ==
[2018-02-25] MEDS ORDERED: *HR* Heparin 5,000 UNIT/ML VIAL IVP PRN ×4 (13:53→20:31)
[2018-02-25] MEDS ORDERED: *HR* Heparin 5,000 UNIT/ML VIAL IVP ONE (13:53)
--- NOTE | 2018-02-25 13:54 | Emergency Department Note ---
Disposition Clinical Impression: Vascular graft occlusion, Ischemic foot pain at rest Disposition: Admitted As Inpatient Condition: Fair General Adult HPI - General Chief complaint: ED Extremity Problem,Nontraumatic Stated complaint: s/p surgeryRight foot pain Time Seen by Provider: 02/25/18 13:50 Source: patient Limitations: no limitations - History of Present Illness Pain Scale: 7 - Related Data Home Medications Medication Instructions Recorded Confirmed Atorvastatin [Lipitor] 20 mg PO HS 01/27/17 02/25/18 BuPROPion SR (12 HR) [Wellbutrin 150 mg PO BID 01/27/17 02/25/18 SR] Cholecalciferol (D-3) [Vitamin D] 2,000 unit PO DAILY 01/27/17 02/25/18 Insulin ASPART [Novolog Flexpen] 10 unit SQ TIDWM 01/27/17 02/25/18 Insulin Glargine,Hum.rec.anlog 65 unit SQ DAILY 01/27/17 02/25/18 [Lantus Solostar] Isosorbide MONOnitrate (24 HR) 60 mg PO DAILY 01/27/17 02/25/18 [Imdur] Metoprolol XL (24 HR) Succ [Toprol 75 mg PO DAILY 01/27/17 02/25/18 Xl] Zolpidem [Ambien] 5 mg PO HS 01/27/17 02/25/18 amLODIPine [Norvasc] 5 mg PO BID 01/27/17 02/25/18 glipiZIDE [Glipizide] 20 mg PO BID 01/27/17 02/25/18 Lisinopril [Zestril] 5 mg PO DAILY 01/02/18 02/25/18 Aspirin Enteric Coated [Aspirin EC] 81 mg PO DAILY 02/25/18 02/25/18 Previous Rx's Medication Instructions Recorded Rivaroxaban [Xarelto] 20 mg PO QPM #30 tablet 01/05/18 Allergies Allergy/AdvReac Type Severity Reaction Status Date / Time morphine Allergy Nausea Verified 02/25/18 12:12 etodolac AdvReac See Verified 02/25/18 12:12 Comments IV DYE Allergy Rash Uncoded 02/25/18 12:12 Past Medical History - Past Medical History Medical history: Reports: diabetes, hyperlipidemia, hypertension, myocardial infarction, peripheral artery disease, renal disease Surgical history: Reports: LE Bypass, LE stent(s), vascular surgery Psychiatric history: Reports: no psych history - Social History Smoking Status: Never smoker Smokeless Tobacco Status: No Alcohol use: Reports: none Drug use: Reports: none Physical Exam - General Limitations: no limitations General appearance: alert, in no apparent distress Course Vital Signs Temperature 98.0 F 02/25/18 12:09 Pulse Rate 58 02/25/18 12:09 Respiratory Rate 16 02/25/18 12:09 Blood Pressure 133/81 02/25/18 12:09 O2 Sat by Pulse Oximetry 97 02/25/18 12:09 Temperature 98.2 F 02/25/18 20:16 Pulse Rate 57 02/25/18 20:16 Respiratory Rate 16 02/25/18 20:16 Blood Pressure 123/79 02/25/18 20:16 O2 Sat by Pulse Oximetry 95 02/25/18 20:16 Oxygen Delivery Oxygen Delivery Room Air Medical Decision Making - Lab Data Result diagrams: 02/25/18 14:00 02/25/18 14:00 Lab Results 02/25/18 02/25/18 02/25/18 Range/Units 14:00 14:00 14:00 WBC 6.4 (4.3-11.1) K/mcL RBC 4.00 L (4.19-5.50) M/mcL Hgb 11.7 L (12.9-16.9) g/dL Hct 35.7 L (37.5-50.1) % MCV 89.3 (83.0-100.0) fL MCH 29.3 (28.0-33.3) pg MCHC 32.8 (31.6-35.5) g/dL RDW 15.3 H (11.5-14.5) % Plt Count 165 (140-400) K/mcL MPV 11.5 (9.4-12.4) fL Immature Gran % 1.1 (0-4) % Seg Neutrophils % 76.2 % Lymphocytes % 13.2 % Monocytes % 7.4 % Eosinophils % 1.6 % Basophils % 0.5 % Neutrophils # 4.9 (1.6-8.9) K/mcL Lymphocytes # 0.8 (0.6-4.6) K/mcL Monocytes # 0.5 (0.0-1.3) K/mcL Eosinophils # 0.1 (0.0-0.6) K/mcL Basophils # 0.0 (0.0-0.2) K/mcL PT 13.7 H (9.4-12.1) Seconds INR 1.2 Heparin Anti-Xa, Unfract 0.59 (0.30-0.70) IU/mL Sodium 133 L (136-145) mEq/L Potassium 4.5 (3.5-5.1) mEq/L Chloride 101 (98-107) mEq/L Carbon Dioxide 26 (23-29) mEq/L BUN 26 H (8-23) mg/dL Creatinine 1.64 H (0.70-1.30) mg/dL Est GFR ( Amer) 50 L (> 60) Est GFR (Non-Af Amer) 42 L (> 60) BUN/Creatinine Ratio 16 (6-26) Glucose 150 H (70-105) mg/dL Calculated Osmolality 284 (280-300) Calcium 9.2 (8.6-10.3) mg/dL Blood Type Antibody Screen 02/25/18 Range/Units 14:00 WBC (4.3-11.1) K/mcL RBC (4.19-5.50) M/mcL Hgb (12.9-16.9) g/dL Hct (37.5-50.1) % MCV (83.0-100.0) fL MCH (28.0-33.3) pg MCHC (31.6-35.5) g/dL RDW (11.5-14.5) % Plt Count (140-400) K/mcL MPV (9.4-12.4) fL Immature Gran % (0-4) % Seg Neutrophils % % Lymphocytes % % Monocytes % % Eosinophils % % Basophils % % Neutrophils # (1.6-8.9) K/mcL Lymphocytes # (0.6-4.6) K/mcL Monocytes # (0.0-1.3) K/mcL Eosinophils # (0.0-0.6) K/mcL Basophils # (0.0-0.2) K/mcL PT (9.4-12.1) Seconds INR Heparin Anti-Xa, Unfract (0.30-0.70) IU/mL Sodium (136-145) mEq/L Potassium (3.5-5.1) mEq/L Chloride (98-107) mEq/L Carbon Dioxide (23-29) mEq/L BUN (8-23) mg/dL Creatinine (0.70-1.30) mg/dL Est GFR ( Amer) (> 60) Est GFR (Non-Af Amer) (> 60) BUN/Creatinine Ratio (6-26) Glucose (70-105) mg/dL Calculated Osmolality (280-300) Calcium (8.6-10.3) mg/dL Blood Type O POSITIVE Antibody Screen NEGATIVE Critical Care Time Critical Care Time: Yes Total Critical Care Time: 30 Attestation: The high probability of a clinically significant, sudden or life threatening deterioration of the [] system(s) required my full and direct attention, intervention and personal management. The aggregate critical care time was [] minutes. This time is in addition to time spent performing reported procedures but includes the following: [] Data Review and interpretation [] Patient assessment and monitoring of vital signs [] Documentation [] Medication orders and management Attestation Statement - Attestation Attestation: I examined this patient and my medical decision-making was reviewed with the Resident Physician. I agree with the documented findings, disposition and treatment plan as described except to the extent set forth below. [id number] time provided Patient with a history of peripheral arterial disease. He complains of increased erythema and peeling skin to his right foot. He had an outpatient arterial study indicating an occluded femoropopliteal graft. I have reviewed the transcribed report of the study. The patient will require IV heparinization and admission with vascular surgery consultation
--- NOTE | 2018-02-25 13:57 | Emergency Department Note ---
Disposition Clinical Impression: Ischemic foot pain at rest Vascular graft occlusion Qualifiers: Encounter type: initial encounter Qualified Code(s): T82.898A - Other specified complication of vascular prosthetic devices, implants and grafts, initial encounter Disposition: Still a Patient Condition: Fair Referrals: Valerie Simpson MD [Primary Care Provider] - Forms: ED Satisfaction Letter Time of Disposition: 15:36 Extremity Problem HPI - General Chief complaint: ED Extremity Problem,Nontraumatic Stated complaint: s/p surgeryRight foot pain Time Seen by Provider: 02/25/18 13:50 Source: patient Limitations: no limitations Nursing Notes Reviewed: Yes Vital Signs Reviewed: Yes - History of Present Illness HPI Narrative: 72-year-old male presents from home with worsening right foot redness, swelling , and pain. He also has peeling to the skin. Symptom onset was after his surgery in December which was a right-sided femoropopliteal bypass. Yesterday, he had an outpatient arterial study which showed an occluded right femoropopliteal bypass. Patient is currently anticoagulated on Xarelto which he has been since December 2017 postop. PMH: PAD, hypertension, hyperlipidemia, CKD, diabetes, CAD with ACS ROS: Positive: As above. Negative: Fever, chills, injury, wounds, red streaking up his leg, chest pain, palpitations Pain Scale: 7 - Related Data Home Medications Medication Instructions Recorded Confirmed Atorvastatin [Lipitor] 20 mg PO HS 01/27/17 02/25/18 BuPROPion SR (12 HR) [Wellbutrin 150 mg PO BID 01/27/17 02/25/18 SR] Cholecalciferol (D-3) [Vitamin D] 2,000 unit PO DAILY 01/27/17 02/25/18 Insulin ASPART [Novolog Flexpen] 10 unit SQ TIDWM 01/27/17 02/25/18 Insulin Glargine,Hum.rec.anlog 65 unit SQ DAILY 01/27/17 02/25/18 [Lantus Solostar] Isosorbide MONOnitrate (24 HR) 60 mg PO DAILY 01/27/17 02/25/18 [Imdur] Metoprolol XL (24 HR) Succ [Toprol 75 mg PO DAILY 01/27/17 02/25/18 Xl] Zolpidem [Ambien] 5 mg PO HS 01/27/17 02/25/18 amLODIPine [Norvasc] 5 mg PO BID 01/27/17 02/25/18 glipiZIDE [Glipizide] 20 mg PO BID 01/27/17 02/25/18 Lisinopril [Zestril] 5 mg PO DAILY 01/02/18 02/25/18 Aspirin Enteric Coated [Aspirin EC] 81 mg PO DAILY 02/25/18 02/25/18 Previous Rx's Medication Instructions Recorded Rivaroxaban [Xarelto] 20 mg PO QPM #30 tablet 01/05/18 Allergies Allergy/AdvReac Type Severity Reaction Status Date / Time morphine Allergy Nausea Verified 02/25/18 12:12 etodolac AdvReac See Verified 02/25/18 12:12 Comments IV DYE Allergy Rash Uncoded 02/25/18 12:12 All systems ED: reviewed and negative except as stated. Review of Systems: As Per HPI Past Medical History - Past Medical History Medical history: Reports: diabetes, hyperlipidemia, hypertension, myocardial infarction, peripheral artery disease, renal disease Surgical history: Reports: LE Bypass, LE stent(s), vascular surgery Psychiatric history: Reports: no psych history - Social History Smoking Status: Never smoker Smokeless Tobacco Status: No Alcohol use: Reports: none Drug use: Reports: none Physical Exam Vital Signs Reviewed General: Patient is alert, oriented, and in no acute distress. Head: atraumatic, normocephalic Eye: normal appearance, no scleral icterus, no conjunctival injection ENT: mucous membranes moist, normal external ear exam Neck: normal inspection, trachea midline, full ROM Chest: normal inspection, symmetric chest rise Respiratory: Good respiratory effort. Bilateral breath sounds are clear without wheezing, crackles, or rhonchi. Cardiovascular: Regular rate and rhythm. No clicks, rubs, gallops, or murmors. Normal heart sounds. Bilateral femoral pulses 2/4 and equal. Left posterior tibial pulses 2/4. Posterior tibial pulse not present to help. Right foot is cool to the touch, has morbilliform erythema overlying the dorsal surface, and superficial peeling of the skin on the plantar surface. Abdomen: Obese. Bowel sounds present normoactive. Abdomen is soft, nondistended, and nontender. No guarding or rebound. No organomegaly noted. Musculoskeletal: Spontaneously moving all extremities. Skin: warm, dry, intact. Neuro: Alert and oriented x4. Sensation light touch intact. Psych: Patient's affect is appropriate for situation. - General Limitations: no limitations General appearance: alert, in no apparent distress Course Course Narrative: Vascular surgery performed 01/03 at this facility: 1. Right femoral to below knee popliteal artery bypass graft thrombectomy. 2. Right femoral to posterior tibial artery bypass with 6mm PTFE graft. We will get screening labs, manage the patient's pain, and consult vascular surgery. 15:14 Discussed the patient with Shadi, circulating OR nurse as Dr. Arias is scrubbed into surgery. Through Shadi, information was passed to Dr. Arias who will take the patient to the OR today. Admit to medicine. No recommendations or changes at this time. I discussed the patient with the admitting hospitalist, Dr. Light, who agrees to that the patient to her service for continued evaluation and management with vascular surgery on consult. EKG dated 02/25/18 at 13:56 interpreted as sinus rhythm with a rate of 75. SC 152, QRS 105, QTC 436. Left axis. Nonspecific ST T changes. Compared to previous EKG dated 01/03/2018 showing no acute ischemic changes comparison. Vital Signs Temperature 98.0 F 02/25/18 12:09 Pulse Rate 58 02/25/18 12:09 Respiratory Rate 16 02/25/18 12:09 Blood Pressure 133/81 02/25/18 12:09 O2 Sat by Pulse Oximetry 97 02/25/18 12:09 Temperature 98.0 F 02/25/18 12:09 Pulse Rate 58 02/25/18 12:09 Respiratory Rate 16 02/25/18 12:09 Blood Pressure 133/81 02/25/18 12:09 O2 Sat by Pulse Oximetry 97 02/25/18 12:09 Oxygen Delivery Oxygen Delivery Room Air Extremity Problem, Nontraumati - Lab Data Result diagrams: 02/25/18 14:00 02/25/18 14:00 Lab Results 02/25/18 02/25/18 02/25/18 Range/Units 14:00 14:00 14:00 WBC 6.4 (4.3-11.1) K/mcL RBC 4.00 L (4.19-5.50) M/mcL Hgb 11.7 L (12.9-16.9) g/dL Hct 35.7 L (37.5-50.1) % MCV 89.3 (83.0-100.0) fL MCH 29.3 (28.0-33.3) pg MCHC 32.8 (31.6-35.5) g/dL RDW 15.3 H (11.5-14.5) % Plt Count 165 (140-400) K/mcL MPV 11.5 (9.4-12.4) fL Immature Gran % 1.1 (0-4) % Seg Neutrophils % 76.2 % Lymphocytes % 13.2 % Monocytes % 7.4 % Eosinophils % 1.6 % Basophils % 0.5 % Neutrophils # 4.9 (1.6-8.9) K/mcL Lymphocytes # 0.8 (0.6-4.6) K/mcL Monocytes # 0.5 (0.0-1.3) K/mcL Eosinophils # 0.1 (0.0-0.6) K/mcL Basophils # 0.0 (0.0-0.2) K/mcL PT 13.7 H (9.4-12.1) Seconds INR 1.2 Heparin Anti-Xa, Unfract 0.59 (0.30-0.70) IU/mL Sodium 133 L (136-145) mEq/L Potassium 4.5 (3.5-5.1) mEq/L Chloride 101 (98-107) mEq/L Carbon Dioxide 26 (23-29) mEq/L BUN 26 H (8-23) mg/dL Creatinine 1.64 H (0.70-1.30) mg/dL Est GFR ( Amer) 50 L (> 60) Est GFR (Non-Af Amer) 42 L (> 60) BUN/Creatinine Ratio 16 (6-26) Glucose 150 H (70-105) mg/dL Calculated Osmolality 284 (280-300) Calcium 9.2 (8.6-10.3) mg/dL Blood Type Antibody Screen 02/25/18 Range/Units 14:00 WBC (4.3-11.1) K/mcL RBC (4.19-5.50) M/mcL Hgb (12.9-16.9) g/dL Hct (37.5-50.1) % MCV (83.0-100.0) fL MCH (28.0-33.3) pg MCHC (31.6-35.5) g/dL RDW (11.5-14.5) % Plt Count (140-400) K/mcL MPV (9.4-12.4) fL Immature Gran % (0-4) % Seg Neutrophils % % Lymphocytes % % Monocytes % % Eosinophils % % Basophils % % Neutrophils # (1.6-8.9) K/mcL Lymphocytes # (0.6-4.6) K/mcL Monocytes # (0.0-1.3) K/mcL Eosinophils # (0.0-0.6) K/mcL Basophils # (0.0-0.2) K/mcL PT (9.4-12.1) Seconds INR Heparin Anti-Xa, Unfract (0.30-0.70) IU/mL Sodium (136-145) mEq/L Potassium (3.5-5.1) mEq/L Chloride (98-107) mEq/L Carbon Dioxide (23-29) mEq/L BUN (8-23) mg/dL Creatinine (0.70-1.30) mg/dL Est GFR ( Amer) (> 60) Est GFR (Non-Af Amer) (> 60) BUN/Creatinine Ratio (6-26) Glucose (70-105) mg/dL Calculated Osmolality (280-300) Calcium (8.6-10.3) mg/dL Blood Type O POSITIVE Antibody Screen NEGATIVE
[2018-02-25] MEDS ORDERED: Heparin 25,000 UNIT/500 ML D5W 25,000 UNIT/500 ML BAG IVC SCH (14:00)
[2018-02-25] MEDS ORDERED: *HR* FentaNYL (PF) 100 MCG/2 ML VIAL IVP ONE ×2 (14:10→22:27)
[2018-02-25 14:29] LABS: Basophils % 0.5 %; Eosinophils # 0.1 K/mcL (0.0-0.6); Eosinophils % 1.6 %; Hematocrit 35.7 % (37.5-50.1); Hemoglobin 11.7 g/dL (12.9-16.9); Immature Granulocytes % 1.1 % (0-4); Lymphocytes # 0.8 K/mcL (0.6-4.6); Lymphocytes % 13.2 %; Mean Corpuscular HGB Conc 32.8 g/dL (31.6-35.5); Mean Corpuscular Hemoglobin 29.3 pg (28.0-33.3); Mean Corpuscular Volume 89.3 fL (83.0-100.0); Mean Platelet Volume 11.5 fL (9.4-12.4); Monocytes # 0.5 K/mcL (0.0-1.3); Monocytes % 7.4 %; Neutrophils # 4.9 K/mcL (1.6-8.9); Platelet Count 165 K/mcL (140-400); Red Cell Distribution Width 15.3 % (11.5-14.5); Segmented Neutrophils % 76.2 %
[2018-02-25 14:33] LABS: Heparin anti-factor XA UFH 0.59 IU/mL (0.30-0.70); INR 1.2; Prothrombin Time 13.7 Seconds (9.4-12.1)
[2018-02-25 14:41] LABS: Calcium 9.2 mg/dL (8.6-10.3); Potassium 4.5 mEq/L (3.5-5.1)
--- NOTE | 2018-02-25 15:00 | Electrocardiograph Report ---
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
[2018-02-25] MEDS ORDERED: Heparin 1,000 UNITS/500 mL 500 ML ONE ×2 (16:20→16:51)
[2018-02-25] MEDS ORDERED: *HR* Propofol 200 MG/20 ML VIAL IVP ONE (16:28)
[2018-02-25] MEDS ORDERED: *HR* FentaNYL (PF) 100 MCG/2 ML VIAL ONE (16:28)
[2018-02-25] MEDS ORDERED: *HR* Remifentanil 1 MG VIAL IVP ONE (16:30)
[2018-02-25] MEDS ORDERED: Lidocaine -MPF 2% 2 ML VIAL ONE (16:30)
[2018-02-25] MEDS ORDERED: *HR* Succinylcholine 200 MG/10 ML VIAL IVP ONE (16:30)
[2018-02-25] MEDS ORDERED: Lidocaine -MPF 4% 5 ML AMPUL ONE (16:35)
--- NOTE | 2018-02-25 16:49 | Anesthesia Evaluation PreOp ---
Date of Encounter: 02/25/18 Time of Encounter: 16:47 - Past History Planned Operation: R LE thrombectomy Cardiac History: HTN, Hyperlipidemia, Other (PAD, s/p fem-pop bypass x 2) Pulmonary History: Former smoker, Smoking Cessation (7yrs ago) LOKIE ENGINEER History: Denies Any Significant HX Other Medical History: Renal (CKD stage III) Anesthesia History: No Prior Anesthetic Complications, Past Anesthesia (R fem pop x 2, aorto bifem) Alcohol Use: none Drug use: none Medications and Allergies Atorvastatin [Lipitor] 20 mg PO HS 01/27/17 [History] BuPROPion SR (12 HR) [Wellbutrin SR] 150 mg PO BID 01/27/17 [History] Cholecalciferol (D-3) [Vitamin D] 2,000 unit PO DAILY 01/27/17 [History] Insulin ASPART [Novolog Flexpen] 10 unit SQ TIDWM 01/27/17 [History] Insulin Glargine,Hum.rec.anlog [Lantus Solostar] 65 unit SQ DAILY 01/27/17 [ History] Isosorbide MONOnitrate (24 HR) [Imdur] 60 mg PO DAILY 01/27/17 [History] Metoprolol XL (24 HR) Succ [Toprol Xl] 75 mg PO DAILY 01/27/17 [History] Zolpidem [Ambien] 5 mg PO HS 01/27/17 [History] amLODIPine [Norvasc] 5 mg PO BID 01/27/17 [History] glipiZIDE [Glipizide] 20 mg PO BID 01/27/17 [History] Lisinopril [Zestril] 5 mg PO DAILY 01/02/18 [History] Rivaroxaban [Xarelto] 20 mg PO QPM #30 tablet 01/05/18 [Rx] Aspirin Enteric Coated [Aspirin EC] 81 mg PO DAILY 02/25/18 [History] 3 Allergy/AdvReac Type Severity Reaction Status Date / Time morphine Allergy Nausea Verified 02/25/18 12:12 etodolac AdvReac See Verified 02/25/18 12:12 Comments IV DYE Allergy Rash Uncoded 02/25/18 12:12 - Meds/Allergy Pre-op Review Medications Reviewed: Yes Allergies Reviewed: Yes Beta Blockers on Current Med List: Yes If Beta Blockers taken, Date/Time (Last Dose taken): 8am 02/25/18 Anesthesia Results - Labs 02/25/18 14:00 02/25/18 14:00 Laboratory Tests 01/02/18 01/02/18 01/02/18 16:17 16:17 16:17 WBC 6.3 Hgb 10.8 L Hct 33.1 L Plt Count 134 L PT 11.4 INR 1.1 APTT Sodium 138 Potassium 4.1 Chloride 104 Carbon Dioxide 27 BUN 27 H Creatinine 1.46 H Glucose 159 H 01/03/18 01/04/18 02/25/18 06:27 20:27 14:00 WBC Hgb Hct Plt Count PT 13.7 H INR 1.2 APTT 85.2 H 60.1 H Sodium Potassium Chloride Carbon Dioxide BUN Creatinine Glucose - Imaging EKG: report reviewed ( Interpretive Statements ECTOPIC ATRIAL RHYTHM WITH FREQUENT VENTRICULAR PREMATURE COMPLEXES ST DEVIATION AND MODERATE T-WAVE ABNORMALITY, CONSIDER INFERIOR ISCHEMIA [-0.1+ mV T WAVE IN II/aVF] WARNING: DATA QUALITY MAY AFFECT INTERPRETATION Electronically Signed On 02-25-2018 14:58: 48 EDT by Raheem Escobedo) Additional studies: stress test 06/2017 Impression: Pharmacologic stress ECG is non-diagnostic for ischemia due to submaximal HR. Gated EF = 55%. The left ventricle is dilated. LVEDV = 202 mL. Large sized, moderate intensity to absent perfusion, fixed defect involving the inferior and inferolateral segments suggestive of a prior infarct. Perfusion imaging was negative for ischemia. Anesthesia Exam Vital Signs/O2 Sat, Most Current Temp Pulse Resp BP Pulse Ox 98.0 F 58 16 133/81 97 02/25/18 12:09 02/25/18 12:09 02/25/18 12:09 02/25/18 12:09 02/25/18 12:09 Height: 1.8m Weight: 127kg NPO (# of Hours): >8 Pain Scale: 5 Pain Scale Used: Numeric (1 - 10) - HEENT Pupil (Motor): Pupils equal, EOMI Mallampati: III Teeth: Edentulous Denture Type: Upper: Complete, Lower: Complete Oral Opening: Greater than 3 - LOKIE ENGINEER LOC: Oriented LOKIE ENGINEER Motor: Normal RUE, Normal LUE, Normal RLE, Normal LLE, Normal Face LOKIE ENGINEER Sensory: Normal: RUE, LUE, RLE, LLE, Face - Cardiac Rhythm: Regular - Pulmonary Breath Sounds: bilateral Clear Respiratory Effort: Symmetrical Anesthesia Assess/Plan ASA Score: 3, E Modified [place] Scale for Level of Consciousness: Cooperative, oriented, and tranquil Anesthetic Plan: General Monitoring Plan: Standard Monitors, A-Line (if needed) Recovery Plan: PACU
--- NOTE | 2018-02-25 17:08 | Vascular/Endovasc Consult Note ---
Date of Encounter: 02/25/18 Time of Encounter: 16:45 Assessment and Plan (1) Ischemic foot pain at rest Current Visit: Yes Status: Acute Patient has recurrent ischemia right lower extremity with recurrent thrombosis of right lower extremity bypass grafts. Patient presents with limb threatening ischemia. Recommend emergent return to the operating room in order to attempt limb salvage. The patient was informed because of his multiple procedures that the overall prognosis is limited. I do not plan on further bypass grafting at this time but offering the patient thrombectomy only. This was explained to the patient. (2) Chronic anemia Current Visit: No Status: Chronic Patient has history of chronic anemia (3) Chronic kidney disease, stage 3 Current Visit: No Status: Chronic Patient has history of chronic kidney disease (4) Coronary artery disease involving [place] heart without angina pectoris Current Visit: No Status: Chronic Patient has history of chronic coronary disease and is status post previous myocardial infarction as well as cardiomyopathy. Qualifiers: Coronary Disease-Associated Artery/Lesion type: [place] artery Qualified Code(s): I25.10 - Atherosclerotic heart disease of [place] coronary artery without angina pectoris (5) Diabetes mellitus Current Visit: Yes Status: Chronic Patient has diabetes with circulatory complications. Qualifiers: Diabetes mellitus type: type 2 Diabetes mellitus director retail brand development insulin use: with director retail brand development use Diabetes mellitus complication status: with kidney complications Diabetes mellitus complication detail: with chronic kidney disease Chronic kidney disease stage: stage 3 (moderate) Qualified Code(s): E11.22 - Type 2 diabetes mellitus with diabetic chronic kidney disease; N18.3 - Chronic kidney disease, stage 3 (moderate); Z79.4 - [facility] (current) use of insulin - History of Present Illness Consult date: 02/25/18 Consult reason: Recurrent ischemia of right lower extremity with rethrombosis of right lowe Chief complaint: Right foot pain and discoloration History of present illness: Mr. Acevedo is a 72 year old male Was seen in the emergency room this afternoon because of persistent right lower extremity symptoms. The patient has a long and complicated history of multiple vascular interventions. He has a history of aneurysm myosis. He has had previous aortic surgery with endovascular graft repair of abdominal aortic aneurysm. In addition he has known bilateral popliteal artery aneurysms. He is status post previous reconstructions for the popliteal artery aneurysms. He has had 3 previous surgeries for the right lower extremity. His last operation was on January [address] Ordonez where thrombectomy of his femoral to below-the- knee popliteal bypass graft was performed and then a jump graft to a tibial was performed as well. The patient was started on Xarleto and discharged. Patient states that since discharge he has not had any improvement of his leg and it has been progressively deteriorating. He states he is only able to walk a few yards at this time and has constant pain. He has difficulty resting. He states he is taking his Xarleto as prescribed. He denies any trauma to the right foot. He also states that these developed a reddish discoloration with blistering and loss of skin on the dorsum of the right foot as well. Previous surgery includes endovascular aneurysm repair and femoral popliteal bypasses. He has multiple ongoing medical concerns including coronary artery disease, chronic kidney disease stage IV, anemia, he, cardiomyopathy, previous myocardial infarction, obesity, diabetes, and hypertension. The patient had undergone noninvasive testing yesterday. This was reported as ankle-brachial index of 0.39 on the right and 0.77 on the left. Duplex scanning demonstrated thrombosis of the right lower extremity bypass grafts. Past Med Surg Social Fam HX - Past Medical History Medical history: diabetes, hyperlipidemia, hypertension, myocardial infarction, peripheral artery disease, renal disease Psychiatric history: no psych history - Past Surgical History Surgical History: LE Bypass, LE stent(s), vascular surgery Additional surgical history: vascular surgeries x5. aneurysm clips - Social History Smoking Status: Never smoker Smokeless Tobacco Status: No Alcohol use: none Drug use: none Medications and Allergies Atorvastatin [Lipitor] 20 mg PO HS 01/27/17 [History] BuPROPion SR (12 HR) [Wellbutrin SR] 150 mg PO BID 01/27/17 [History] Cholecalciferol (D-3) [Vitamin D] 2,000 unit PO DAILY 01/27/17 [History] Insulin ASPART [Novolog Flexpen] 10 unit SQ TIDWM 01/27/17 [History] Insulin Glargine,Hum.rec.anlog [Lantus Solostar] 65 unit SQ DAILY 01/27/17 [ History] Isosorbide MONOnitrate (24 HR) [Imdur] 60 mg PO DAILY 01/27/17 [History] Metoprolol XL (24 HR) Succ [Toprol Xl] 75 mg PO DAILY 01/27/17 [History] Zolpidem [Ambien] 5 mg PO HS 01/27/17 [History] amLODIPine [Norvasc] 5 mg PO BID 01/27/17 [History] glipiZIDE [Glipizide] 20 mg PO BID 01/27/17 [History] Lisinopril [Zestril] 5 mg PO DAILY 01/02/18 [History] Rivaroxaban [Xarelto] 20 mg PO QPM #30 tablet 01/05/18 [Rx] Aspirin Enteric Coated [Aspirin EC] 81 mg PO DAILY 02/25/18 [History] 3 Allergy/AdvReac Type Severity Reaction Status Date / Time morphine Allergy Nausea Verified 02/25/18 12:12 etodolac AdvReac See Verified 02/25/18 12:12 Comments IV DYE Allergy Rash Uncoded 02/25/18 12:12 All Systems Review: The remainder of the systems were reviewed and are negative Exam Vital Signs, Last 4 Hours Pulse Resp BP Pulse Ox 02/25/18 16:51 60 20 131/80 97 General: Present: Conversant, Well developed, Well nourished, Other (Obese) HEENT: Present: Atraumatic, Normocephaly, Trachea midline, Pupils equal Neck: Absent: JVD, Midline deformity, Tracheal deviation Neuro: Present: Alert and responsive, No focal deficits noted, Cranial nerves grossly intact Abdomen: Present: Soft, Non-tender Vascular: Present: Capillary refill delayed, Pulse, normal (Palpable left popliteal pulse. No palpable right popliteal pulse. No palpable pedal pulses bilaterally.), Color/Temperature (Feet are cool more so on the right side on the left. Patient has a reddish discoloration of the dorsum of the foot with desquamation of the skin on the dorsum and medial aspect of the right foot.), Surgical incisions (Patient has multiple surgical incisions on both lower extremities. These incisions are well-healed.). Absent: Amputation(s) Skin: Present: No rashes noted on visualized skin Musculoskeletal: Present: No Chest Wall Tenderness Consult Discharge Plan - Plan Referrals: Valerie Simpson MD [Primary Care Provider] -
[2018-02-25] MEDS ORDERED: Ondansetron 4 MG/2 ML VIAL ONE (17:39)
[2018-02-25] MEDS ORDERED: Dexamethasone 4 MG/ML VIAL ONE (17:39)
[2018-02-25] MEDS ORDERED: EPHEDrine 50 MG/ML VIAL ONE ×2 (17:44→18:12)
[2018-02-25] MEDS ORDERED: *HR* Labetalol 20 MG/4 ML SYRINGE IVP PRN (19:36)
[2018-02-25] MEDS ORDERED: *HR* OxyCODONE Immed Rel 5 MG TABLET PO PRN (19:36)
[2018-02-25] MEDS ORDERED: *HR* Promethazine 25 MG/ML VIAL IVP PRN (19:36)
[2018-02-25] MEDS ORDERED: Acetaminophen IV 1,000 MG/100 ML INFUS..BTL IVPB ONE ×2 (19:36→20:31)
--- NOTE | 2018-02-25 19:41 | Operative Note ---
Date of procedure: 02/25/18 Pre-op diagnosis: recurrent ischemia and rethrombosis of right leg bypasses Post-op diagnosis: same Procedure: thrombectomy of right leg bypass grafts Complications: none Anesthesia: GETA Surgeon: Juan Diego Arriaga Was there an trust manager assistant present: No Estimated blood loss (cc): 200 Specimen: 0 Condition: stable Disposition: PACU Procedure in Detail: History Elver Acevedo is a 72-year-old white male that was seen and admitted from the emergency room because of recurrent right leg ischemia. The patient has a very complicated past history with multiple aneurysms. He had undergone previous bypass grafts on the right side. In December of this year Dr. Ordonez had performed a thrombectomy of a femoral to below the knee popliteal artery bypass graft and jump graft to the peroneal artery. The patient's states that at this time he has severe right foot pain with discoloration. Using a able to walk only about 10-15 yards. He had noninvasive studies performed yesterday which showed an ankle-brachial index of 0.3 on the right and duplex imaging demonstrating thrombosis of the bypass grafts. Because of the patient's rather complicated history and very poor vascular prognosis I recommended emergent return to the operating room for one last attempt at a thrombectomy. It was explained to the patient that no further bypass grafts would be offered to him at this time. It should be noted that the patient is on Xarleto and states he has been taking the Xarleto as directed. Procedure After informed consent was obtained the patient was taken the operating room. General endotracheal anesthesia was established. The right lower extremity was sterilely prepped and draped. A timeout protocol was observed. The flow the knee calf incision was used and reopened for the operation this evening. Dissection was carried down to the synthetic grafts. It should be noted the patient is significantly obese and the tissue was inflamed as expected now that it is about 6 weeks following his most recent operation. This led to the technical difficulty of the surgery. Once the bypass grafts were identified and controlled a transverse incision was made on the distal jump graft to the peroneal artery. No flow was noted in the graft and subacute to chronic material was identified. Interestingly though using 3 and 4 Argentine Reny catheters they could be advanced only a distance of about 20 cm into the mid to distal calf but not onto the foot and ankle region. This confirmed my suspicion that the primary problem with this patient was outflow as the CT scan from December had demonstrated a single-vessel runoff to the ankle in the peroneal artery. Some back bleeding was established though this was very sluggish. The artery was then flushed with heparinized saline. Attention was then directed to the proximal artery of the graft. Using a 3 and 4 and 5 Argentine Reny catheter large amount of clot was removed and then eventually excellent pulsatile flow was achieved. The graft was then back flushed with heparinized saline. It should be noted that the patient was placed on IV heparin in the emergency room and his IV heparin drip was continued during the course of the operation. The graftotomy was then closed. The patient had a visible pulse in the graft but there was limited flow by Doppler distally. It is thought overall the patient is an extremely poor prognosis and would most likely require amputation in the future. The wound was then irrigated after hemostasis was achieved. It was then closed in layers using absorbable suture. The patient was extubated in the operating room. He was taken from the operating room to the recovery room in stable condition.
--- NOTE | 2018-02-25 19:52 | Internal Med History&Physical ---
Date of Encounter: 02/26/18 Time of Encounter: 19:52 Internal Medicine - H&P: HPI History of present illness: Mr. Acevedo is a 72 year old male Past Med Surg Social Fam HX - Past Medical History Medical history: diabetes, hyperlipidemia, hypertension, myocardial infarction, peripheral artery disease, renal disease Psychiatric history: no psych history - Past Surgical History Surgical History: LE Bypass, LE stent(s), vascular surgery Additional surgical history: vascular surgeries x5. aneurysm clips - Social History Smoking Status: Never smoker Smokeless Tobacco Status: No Alcohol use: none Drug use: none Internal Medicine - H&P: Meds Atorvastatin [Lipitor] 20 mg PO HS 01/27/17 [History] BuPROPion SR (12 HR) [Wellbutrin SR] 150 mg PO BID 01/27/17 [History] Cholecalciferol (D-3) [Vitamin D] 2,000 unit PO DAILY 01/27/17 [History] Insulin ASPART [Novolog Flexpen] 10 unit SQ TIDWM 01/27/17 [History] Insulin Glargine,Hum.rec.anlog [Lantus Solostar] 65 unit SQ DAILY 01/27/17 [ History] Isosorbide MONOnitrate (24 HR) [Imdur] 60 mg PO DAILY 01/27/17 [History] Metoprolol XL (24 HR) Succ [Toprol Xl] 75 mg PO DAILY 01/27/17 [History] Zolpidem [Ambien] 5 mg PO HS 01/27/17 [History] amLODIPine [Norvasc] 5 mg PO BID 01/27/17 [History] glipiZIDE [Glipizide] 20 mg PO BID 01/27/17 [History] Lisinopril [Zestril] 5 mg PO DAILY 01/02/18 [History] Rivaroxaban [Xarelto] 20 mg PO QPM #30 tablet 01/05/18 [Rx] Aspirin Enteric Coated [Aspirin EC] 81 mg PO DAILY 02/25/18 [History] 3 Allergy/AdvReac Type Severity Reaction Status Date / Time morphine Allergy Nausea Verified 02/25/18 12:12 etodolac AdvReac See Verified 02/25/18 12:12 Comments IV DYE Allergy Rash Uncoded 02/25/18 12:12 All Systems PM: A 10-system review of systems was performed and is negative for pertinent findings except as documented above in the HPI. 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 Current Visit: No Status: Chronic (2) Coronary artery disease involving [place] heart without angina pectoris Current Visit: No Status: Chronic Qualifiers: Coronary Disease-Associated Artery/Lesion type: [place] artery Qualified Code(s): I25.10 - Atherosclerotic heart disease of [place] coronary artery without angina pectoris (3) Diabetes mellitus with peripheral angiopathy without gangrene Current Visit: No Status: Chronic Qualifiers: Diabetes mellitus type: type 2 Diabetes mellitus long-term insulin use: unspecified meterman insulin use status Qualified Code(s): E11.51 - Type 2 diabetes mellitus with diabetic peripheral angiopathy without gangrene (4) Chronic kidney disease, stage 3 Current Visit: No Status: Chronic (5) Essential hypertension Current Visit: No Status: Chronic (6) Mixed hyperlipidemia Current Visit: No Status: Chronic - Time Spent With Patient Total time spent is greater than 50% in coordination of care (as documented) at patient's floor/unit and/or counseling patient:
[2018-02-25] MEDS ORDERED: Acetaminophen 325 MG TABLET PO PRN (20:31)
[2018-02-25] MEDS ORDERED: Naloxone 0.4 MG/ML INJ IVP PRN (20:31)
--- NOTE | 2018-02-25 20:47 | Anesthesia Evaluation Post Op ---
Date of Encounter: 02/25/18 Time of Encounter: 20:00 - Vital Signs Vital Signs: Last Vital Signs Temp 98.2 F 02/25/18 20:16 Pulse 57 02/25/18 20:16 Resp 16 02/25/18 20:16 BP 123/79 02/25/18 20:16 Pulse Ox 95 02/25/18 20:16 - Lungs Lungs: Clear Ascult./Percussion - Airway Airway: Non-obstructed - Cardiovascular Regular Rate - Mental Status Mental Status: Alert & Oriented, Answers Appropriately - Pain Pain Scale: 3 - Nausea Vomiting Nausea Vomiting: Not Present - Hydration Hydration: NPO, Steinberg catheter - Discharge PostOp Status: Transfer Patient to floor
[2018-02-25] MEDS: BuPROPion SR (12 HR) 150 MG TABLET PO SCH (21:03)
[2018-02-25] MEDS: amLODIPine 5 MG TABLET PO SCH (21:03)
[2018-02-25] MEDS: *HR* OxyCODONE Immed Rel 5 MG TABLET PO PRN (21:04)
[2018-02-25] MEDS: Heparin 25,000 UNIT/500 ML D5W 25,000 UNIT/500 ML BAG IVC SCH (23:15)
[2018-02-26] MEDS: *HR* HYDROcodone/Acet 5/325 mg TABLET PO PRN ×2 (01:36→23:49)
[2018-02-26] MEDS: CeFAZolin Syr 3,000MG/30 ML 3,000 MG/30 ML SYRINGE IVPB SCH ×3 (01:37→16:47)
[2018-02-26] MEDS ORDERED: Acetaminophen IV 1,000 MG/100 ML INFUS..BTL IVPB ONE (03:00)
[2018-02-26 05:02] LABS: Hematocrit 29.3 % (37.5-50.1); Immature Granulocytes % 1.4 % (0-4); Lymphocytes # 0.2 K/mcL (0.6-4.6); Lymphocytes % 3.6 %; Mean Corpuscular HGB Conc 31.7 g/dL (31.6-35.5); Mean Corpuscular Hemoglobin 28.7 pg (28.0-33.3); Mean Corpuscular Volume 90.4 fL (83.0-100.0); Mean Platelet Volume 11.6 fL (9.4-12.4); Monocytes # 0.1 K/mcL (0.0-1.3); Monocytes % 0.9 %; Neutrophils # 5.5 K/mcL (1.6-8.9); Platelet Count 138 K/mcL (140-400); Red Blood Count 3.24 M/mcL (4.19-5.50); Red Cell Distribution Width 15.4 % (11.5-14.5); Segmented Neutrophils % 94.1 %
[2018-02-26 05:03] LABS: Hemoglobin 9.3 g/dL (12.9-16.9)
[2018-02-26 05:21] LABS: Calcium 8.3 mg/dL (8.6-10.3)
[2018-02-26] MEDS ORDERED: *HR* GlipiZIDE 5 MG TABLET PO SCH (08:00)
[2018-02-26] MEDS ORDERED: D5% in Water 1,000 ML IVC PRN (08:01)
[2018-02-26] MEDS ORDERED: Dextrose Gel 15 GM/37.5 ML TUBE PO PRN ×2 (08:01)
[2018-02-26] MEDS ORDERED: *HR* Dextrose 50 % in Water (Syg) 50 ML SYRINGE IVP PRN (08:01)
[2018-02-26] MEDS: Insulin DETEMIR 100 UNIT/ML X5UNITS SQ SCH (08:03)
[2018-02-26] MEDS: Aspirin Enteric Coated 81 MG Tablet PO SCH (08:04)
[2018-02-26] MEDS: Metoprolol XL (24 HR) Succ 50 MG TAB.ER.24H PO SCH (08:04)
[2018-02-26] MEDS: Insulin LISPRO 300 UNITS/3 ML VIAL SQ SCH ×6 (08:04→16:48)
[2018-02-26] MEDS: Cholecalciferol (D-3) 1,000 UNIT TABLET PO SCH (08:04)
[2018-02-26] MEDS: amLODIPine 5 MG TABLET PO SCH ×2 (08:04→20:53)
[2018-02-26] MEDS: Isosorbide MONOnitrate (24 HR) 60 MG TAB.ER.24H PO SCH (08:04)
[2018-02-26] MEDS: BuPROPion SR (12 HR) 150 MG TABLET PO SCH ×2 (08:04→20:53)
[2018-02-26] MEDS: Heparin 25,000 UNIT/500 ML D5W 25,000 UNIT/500 ML BAG IVC SCH (08:14)
[2018-02-26] MEDS: 0.9 % Sodium Chloride 1,000 ML IVC SCH ×2 (08:24→20:57)
[2018-02-26] MEDS: *HR* OxyCODONE Immed Rel 5 MG TABLET PO PRN ×3 (09:16→20:54)
--- NOTE | 2018-02-26 13:52 | Internal Med Progress Note ---
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 Vascular surgery consulted; appreciate input. He is POD #1 s/p thrombectomy of RLE bypass grafts. Will continue IV heparin drip until cleared by vascular surgery; will then transition back to home xarelto. Pain control. (2) Diabetes mellitus with peripheral angiopathy without gangrene Current Visit: Yes Status: Chronic Assessment and plan: Hyperglycemia. Continue accuchecks and add high dose SSI QID AC/HS. Continue home insulin regimen. Qualifiers: Diabetes mellitus type: type 2 Diabetes mellitus halfway insulin use: unspecified halfway insulin use status Qualified Code(s): E11.51 - Type 2 diabetes mellitus with diabetic peripheral angiopathy without gangrene (3) Coronary artery disease involving [place] heart without angina pectoris Current Visit: Yes Status: Chronic Assessment and plan: Continue home medications. Qualifiers: Coronary Disease-Associated Artery/Lesion type: [place] artery Qualified Code(s): I25.10 - Atherosclerotic heart disease of [place] coronary artery without angina pectoris (4) Chronic kidney disease, stage 3 Current Visit: Yes Status: Chronic Assessment and plan: SHARMAINE on CKD. Start IV NS at 75 ml/hr. Avoid nephrotoxins. Holding home lisinopril for now. Recheck BMP in AM. (5) Essential hypertension Current Visit: Yes Status: Chronic Assessment and plan: Continue home medications except lisinopril as per above. (6) Mixed hyperlipidemia Current Visit: Yes Status: Chronic Assessment and plan: Continue home medications. (7) DVT prophylaxis Current Visit: Yes Status: Acute Assessment and plan: Continue heparin drip. - Time Spent With Patient Total time spent is greater than 50% in coordination of care (as documented) at patient's floor/unit and/or counseling patient: less than 15 minutes - Subjective Interval history: Patient had no acute events overnight. He is POD #1 s/p thrombectomy of RLE bypass grafts. He states that RLE pain is "improved." He looks to be in no distress at this time. He denies fever, chills, chest pain, SOB, nausea, vomiting, and abdominal pain. He wants to go home. He has no complaints at this time. - Constitutional Vitals: Temp Pulse Resp BP Pulse Ox 97.8 F 67 16 130/74 97 02/26/18 10:58 02/26/18 10:58 02/26/18 10:58 02/26/18 10:58 02/26/18 10:58 General appearance: Present: cooperative, A&O X 3, pleasant, no acute distress, answers questions appropriately - Respiratory Respiratory exam: Present: CTAB. Absent: accessory muscle use, rales, rhonchi, wheezes Additional comments: Normal WOB - Cardiovascular Cardiovascular exam: Present: RRR, +S1, +S2. Absent: diastolic murmur, gallop, rubs, systolic murmur Additional comments: No BLE edema - GI/Abdominal GI/Abdominal exam: Present: normal bowel sounds, soft. Absent: distended, hepatomegaly, mass, splenomegaly, tenderness - Extremities Exam Additional comments: RLE in bandaging without drainage, no TTP, RLE cool compared to LLE - Psychiatric Psychiatric exam: Present: normal affect, normal mood. Absent: agitated, anxious, depressed - Skin Skin exam: Present: dry, warm. Absent: cyanosis, erythema, rash Internal Medicine: Result - Labs CBC & Chem 7: 02/26/18 04:35 02/26/18 04:35 Labs: Short CBC 02/26/18 Range/Units 04:35 WBC 5.8 (4.3-11.1) K/mcL Hgb 9.3 L D (12.9-16.9) g/dL Hct 29.3 L (37.5-50.1) % Plt Count 138 L (140-400) K/mcL Neutrophils # 5.5 (1.6-8.9) K/mcL BMP 02/26/18 04:35 Sodium 129 L Potassium 5.0 Chloride 98 Carbon Dioxide 22 L BUN 38 H Creatinine 2.04 H Glucose 473 H Calcium 8.3 L - ABG Interpretation ABG results: PT/INR, D-dimer PT 13.7 Seconds (9.4-12.1) H 02/25/18 14:00 Consult Discharge Plan - Plan Referrals: Valerie Simpson MD [Primary Care Provider] - 03/07/18 9:45 am Juan Diego Arriaga MD [Partnered Physician] - 03/19/18 10:30 am
[2018-02-26] MEDS ORDERED: *HR* Rivaroxaban 10 MG TABLET PO SCH (17:00)
--- NOTE | 2018-02-26 18:37 | Vascular/End[facility]as Progress Note ---
Date of Encounter: 02/26/18 Time of Encounter: 12:30 - Assessment and plan (1) Ischemic foot pain at rest Current Visit: Yes Status: Acute Patient is symptomatically improved following emergency thrombectomy last night. I did discuss in detail with him and his the prognosis for his leg which is poor. This is based on the fact that he has a single vessel runoff via the peroneal artery with minimal flow demonstrated through the pedal vessels on CT scan from December 2017. I stressed the need for continued risk factor modification and anticoagulation. The intravenous heparin drip will be discontinued now and the Xarleto will be resumed this afternoon. (2) Chronic anemia Current Visit: No Status: Chronic Patient has history of chronic anemia (3) Chronic kidney disease, stage 3 Current Visit: Yes Status: Chronic Patient has history of chronic kidney disease the postop a #1 BUN and creatinine have deteriorated from admission. Patient will be treated with hydration and observation for this issue. (4) Coronary artery disease involving [place] heart without angina pectoris Current Visit: Yes Status: Chronic Patient has history of chronic coronary disease and is status post previous myocardial infarction as well as cardiomyopathy. Qualifiers: Coronary Disease-Associated Artery/Lesion type: [place] artery Qualified Code(s): I25.10 - Atherosclerotic heart disease of [place] coronary artery without angina pectoris (5) Diabetes mellitus Current Visit: Yes Status: Chronic Patient has diabetes with circulatory complications. 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 Patient states he has improved feeling to his foot and his foot is feeling better. He has not done much ambulation Vital Signs, Last 4 Hours Temp Pulse Resp BP Pulse Ox 02/26/18 16:01 97.9 F 61 17 132/73 98 - Physical Examination General: Present: Conversant, No Apparent Distress, Well developed, Well nourished Vascular: Present: Capillary refill delayed, Surgical incisions (Patient has oozing from right Surgical site. Patient is on IV heparin drip), Other ( Patient does have Doppler signals identified at the posterior tibial and dorsalis pedis and peroneal artery sites at the right ankle.) Abdomen: Present: Soft - VTE Reasons for not Prescribing Prophylaxis: Not indicated-Anticoagulated or INR therapeutic Documentation of Mechanical Device: Intermittent pneumatic compression device Results 02/26/18 04:35 02/26/18 04:35 Lab Results, Last 24 hours 02/26/18 02/26/18 04:35 04:35 WBC 5.8 Hgb 9.3 L D Hct 29.3 L Plt Count 138 L Sodium 129 L Potassium 5.0 Chloride 98 Carbon Dioxide 22 L BUN 38 H Creatinine 2.04 H Glucose 473 H Calcium 8.3 L Consult Discharge Plan - Plan Referrals: Valerie Simpson MD [Primary Care Provider] - 03/13/18 10:45 am Juan Diego Arriaga MD [Partnered Physician] - 03/19/18 10:30 am
[2018-02-26] MEDS ORDERED: Insulin LISPRO 300 UNITS/3 ML VIAL SQ SCH (21:00)
[2018-02-27 03:46] LABS: Basophils % 0.1 %; Eosinophils % 0.2 %; Hematocrit 24.9 % (37.5-50.1); Hemoglobin 7.9 g/dL (12.9-16.9); Immature Granulocytes % 0.7 % (0-4); Lymphocytes # 0.6 K/mcL (0.6-4.6); Lymphocytes % 7.6 %; Mean Corpuscular HGB Conc 31.7 g/dL (31.6-35.5); Mean Corpuscular Hemoglobin 28.8 pg (28.0-33.3); Mean Corpuscular Volume 90.9 fL (83.0-100.0); Mean Platelet Volume 11.5 fL (9.4-12.4); Monocytes # 0.5 K/mcL (0.0-1.3); Monocytes % 6.6 %; Neutrophils # 6.8 K/mcL (1.6-8.9); Platelet Count 139 K/mcL (140-400); Red Blood Count 2.74 M/mcL (4.19-5.50); Red Cell Distribution Width 15.8 % (11.5-14.5); Segmented Neutrophils % 84.8 %
[2018-02-27 04:06] LABS: Calcium 8.1 mg/dL (8.6-10.3)
[2018-02-27] MEDS: Insulin DETEMIR 100 UNIT/ML X5UNITS SQ SCH (08:53)
[2018-02-27] MEDS: Aspirin Enteric Coated 81 MG Tablet PO SCH (08:54)
[2018-02-27] MEDS: BuPROPion SR (12 HR) 150 MG TABLET PO SCH (08:54)
[2018-02-27] MEDS: Isosorbide MONOnitrate (24 HR) 60 MG TAB.ER.24H PO SCH (08:54)
[2018-02-27] MEDS: amLODIPine 5 MG TABLET PO SCH (08:54)
[2018-02-27] MEDS: Cholecalciferol (D-3) 1,000 UNIT TABLET PO SCH (08:54)
[2018-02-27] MEDS: Metoprolol XL (24 HR) Succ 50 MG TAB.ER.24H PO SCH (08:54)
[2018-02-27] MEDS: Insulin LISPRO 300 UNITS/3 ML VIAL SQ SCH ×4 (08:55→11:39)
[2018-02-27] MEDS ORDERED: 0.9 % Sodium Chloride 1,000 ML IVC ONE (10:43)
--- NOTE | 2018-02-27 10:57 | Discharge Summary ---
- NOTES TO OUTPATIENT PROVIDER Notes to Outpatient Provider: Follow up with PCP in 2-3 days after discharge. Recheck BMP (SHARMAINE on CKD) and CBC (post-operative anemia) at that time. Follow up with vascular surgery as directed. 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 Acevedo is a 72 year old male admitted for right foot ischemic pain at rest secondary to recurrent thrombosis of RLE bypass grafts. He was admitted to step down unit. His home xarelto was held and he was started on heparin drip. Vascular surgery was consulted and he was taken to OR for limb salvage. Successful thrombectomy of bypass grafts was performed. Post-operatively he had some anemia, SHARMAINE on CKD, and hyperglycemia. High dose SSI was added to home insulin regimen. Blood glucose improved. He will be discharged home on higher dose of short-acting insulin. Creatinine slowly improved; still not back to baseline. Patient adamant about going home today. Will give 1L NS bolus today and discharge home with close follow up with PCP in 2-3 days to monitor renal function. Hemoglobin is 7.9 on day of discharge; he is asymptomatic. CBC will be repeat at PCP follow up in 2-3 days. Post- operatively, heparin drip was stopped and home xarelto restarted. He is doing great today with no pain. PT/OT evaluate patient and determined no rehab needs. He will follow up with PCP in 2-3 days after discharge. Repeat BMP and CBC will be rechecked at that time. He will follow up with vascular surgery as directed. Patient has met maximum benefit of this hospitalization and will be discharged home in stable condition. Discharge discussed with: patient, family, nurse, other (Pharmacist) - Time Spent with Patient Total time spent providing and/or coordinating discharge services: Greater than 30 minutes - Discharge Medications Prescriptions: Docusate [Colace] 100 mg PO BID PRN 7 Days #14 capsule PRN Reason: Constipation Insulin ASPART [Novolog Flexpen] 15 unit SQ TIDWM #1 insuln.pen Home Medications: Atorvastatin [Lipitor] 20 mg PO HS 01/27/17 [History] BuPROPion SR (12 HR) [Wellbutrin SR] 150 mg PO BID 01/27/17 [History] Cholecalciferol (D-3) [Vitamin D] 2,000 unit PO DAILY 01/27/17 [History] Insulin Glargine,Hum.rec.anlog [Lantus Solostar] 65 unit SQ DAILY 01/27/17 [ History] Isosorbide MONOnitrate (24 HR) [Imdur] 60 mg PO DAILY 01/27/17 [History] Metoprolol XL (24 HR) Succ [Toprol Xl] 75 mg PO DAILY 01/27/17 [History] Zolpidem [Ambien] 5 mg PO HS 01/27/17 [History] amLODIPine [Norvasc] 5 mg PO BID 01/27/17 [History] glipiZIDE [Glipizide] 20 mg PO BID 01/27/17 [History] Lisinopril [Zestril] 5 mg PO DAILY 01/02/18 [History] Rivaroxaban [Xarelto] 20 mg PO QPM #30 tablet 01/05/18 [Rx] Aspirin Enteric Coated [Aspirin EC] 81 mg PO DAILY 02/25/18 [History] Docusate [Colace] 100 mg PO BID PRN 7 Days #14 capsule 02/27/18 [Rx] Insulin ASPART [Novolog Flexpen] 15 unit SQ TIDWM #1 insuln.pen 02/27/18 [Rx] Allergies/Adverse Reactions: 3 Allergy/AdvReac Type Severity Reaction Status Date / Time morphine Allergy Nausea Verified 02/25/18 12:12 etodolac AdvReac See Verified 02/25/18 12:12 Comments IV DYE Allergy Rash Uncoded 02/25/18 12:12 Date of admission: 02/25/18 18:50 Primary care physician: Valerie Simpson MD Consults: Vascular Surgery 02/26/18 13:48 Consult to Physical Therapy [CONS] Routine Comment: Evaluate, develop and implement POC Reason for Consult: Peripheral Artery Disease s/p RLE thrombectomy. Please evaluate, treat, and determine rehab needs. Thanks. Does patient have active BEDREST order?: No Is patient medically & hemodynamically stable?: Yes Patient assessed for mobility or mobilized this visit?: No 02/27/18 10:44 Consult to Physical Therapy [CONS] Stat Comment: Evaluate, develop and implement POC Reason for Consult: Please evaluate ANIL. Plan for discharge today. Does patient have active BEDREST order?: No Is patient medically & hemodynamically stable?: Yes Patient assessed for mobility or mobilized this visit?: No Discharging clinician: Wesley Willams Anticipated date of discharge: 02/27/18 - Constitutional Vitals: Temp Pulse Resp BP Pulse Ox 97.6 F 61 17 112/71 99 02/27/18 07:10 02/27/18 09:06 02/27/18 07:10 02/27/18 07:10 02/27/18 07:10 General appearance: Present: cooperative, A&O X 3, pleasant, no acute distress, answers questions appropriately - Respiratory Respiratory exam: Present: CTAB. Absent: accessory muscle use, rales, rhonchi, wheezes Additional comments: Normal WOB - Cardiovascular Cardiovascular exam: Present: RRR, +S1, +S2. Absent: diastolic murmur, gallop, rubs, systolic murmur Additional comments: No BLE edema - GI/Abdominal GI/Abdominal exam: Present: normal bowel sounds, soft. Absent: distended, hepatomegaly, mass, splenomegaly, tenderness - Extremities Exam Additional comments: RLE in bandaging without drainage, no TTP, good BLE capillary refill - Psychiatric Psychiatric exam: Present: normal affect, normal mood. Absent: agitated, anxious, depressed - Skin Skin exam: Present: dry, intact, warm. Absent: cyanosis, rash - Patient Status Disposition: Home, Self-Care Condition: Good Functional capacity at discharge: uses cane/walker Overall status at discharge: patient is progressing back to baseline - Discharge Instructions Follow Up With: Isauro Ordonez MD [Partnered Physician] - 03/12/18 2:40 pm Valerie Simpson MD [Primary Care Provider] - 03/13/18 10:45 am Additional Instructions: Follow up with PCP in 2-3 days after discharge. Recheck BMP (SHARMAINE on CKD) and CBC (post-operative anemia) at that time. Follow up with vascular surgery as directed. - Diet and Activity Activity: resume usual activities as tolerated Diet: diabetic diet, low fat, low cholesterol, low salt diet, other (Cardiac Diet, Renal Diet) - VTE Contraindication No Overlap Therapy: Admin of oral Factor Xa Inhibitor
[2018-02-27] MEDS: *HR* OxyCODONE Immed Rel 5 MG TABLET PO PRN (11:14)
[2018-02-27 11:31] VITALS: BP 139/76
[2018-02-27] MEDS: 0.9 % Sodium Chloride 1,000 ML IVC SCH (13:11)
== END 2018-02-27 14:18 | disposition home or self-care (01) | DRG 253 ==
LOC: EMEROO 12:06 → 2NNU 16:59
PROVIDERS: ADMIT Internal Medicine Nephrology; ATTEND Internal Medicine Nephrology